=== PATIENT | male | born 1945 | race Caucasian/White ===

== ENCOUNTER → 2016-10-18 | Outpatient (CLI) | payer OTHER ==
--- NOTE | 2016-10-20 11:18 | RADRPT ---
EXAM DATE/TIME: 10/18/2016 16:31 [facility] COMPARISON : No previous studies available for comparison. INDICATIONS : Evaluate for possible cryoablation. OBJECTIVE: Temperature: Heart Rate: Blood Pressure: / Respiratory: Oximetry: PNEUMONIA VACCINE: HISTORY OF PRESENT ILLNESS: ? IMAGING STUDIES: ? ASSESSMENT: ? PLAN: ? TIME SPENT: Homer Gil MD on October 20, 2016 at 11:07 Board Certified Radiologist. This report was verified electronically.
== END ==
LOC: HRAD 12:03
DX: K76.89 Other specified diseases of liver (principal)

== ENCOUNTER 2017-01-14 14:08 | Inpatient (IN) | payer OTHER, MEDICARE ==
[~2017-01-14] VITALS: Ht 160 cm; Wt 71.3 kg
[2017-01-14 14:11] VITALS: BP 102/51; PULSE 99; RESP 18; TEMP 98.2; O2SAT 97
[2017-01-14 14:28] VITALS: BP 105/64; PULSE 88; RESP 14; TEMP 100.9; O2SAT 100
[2017-01-14 14:39] VITALS: O2SAT 96
[2017-01-14] MEDS ORDERED: SODIUM CHLORIDE 0.9% FLUSH 5 ML FLUSH IV FLUSH PRN (14:45)
[2017-01-14] MEDS ORDERED: SODIUM CHLOR 0.9% 1000 ML INJ 1,000 ML IV ONE (15:00)
[2017-01-14] MEDS ORDERED: ACETAMINOPHEN 325 MG TAB PO ONE (15:00)
[2017-01-14] MEDS ORDERED: CEFEPIME INJ 2,000 MG in SODIUM CHLORIDE 0.9% INJ 100 ML IV ONE (15:00)
--- NOTE | 2017-01-14 15:00 | PD ---
HPI Chief Complaint: Abnormal Results Time Seen by Provider: 14:21 Travel History International Travel<30 days: No Contact w/Intl Traveler<30days: No Traveled to known affect area: No History of Present Illness HPI 71 YO M with PMH of HTN, stage IV colorectal cancer presents to the ED for evaluation of 3 day history of fever. The patient was seen in his oncologist, Dr. Lebron's, office this morning. Outpatient lab work revealed the patient to be neutropenic. Dr. Lebron sent the patient for admission. On presentation the patient endorses fever and feeling more tired than usual over the last 3 days. He denies any other physical complaints. PFSH Past Medical History Chemotherapy: Yes (01/05/17) Hypertension: Yes Implanted Vascular Access Dvce: Yes (R CHEST WALL ) Medical other: Yes (CHEMO ) Past Surgical History Abdominal Surgery: Yes (COLON CA ) Social History Alcohol Use: Yes (OCCASSIONAL) Tobacco Use: Yes Substance Use: No Allergies-Medications (Allergen,Severity, Reaction): Uncoded Allergies: 5FU (Allergy, Severe, Rash, 01/14/17) Reported Meds & Prescriptions Reported Meds & Active Scripts Active Active Prescriptions or Reported Medications Unobtainable Review of Systems Except as stated in HPI: all other systems reviewed are Neg Physical Exam Narrative GENERAL: Well-nourished, well-developed pleasant, obese white male in no acute distress.. SKIN: Focused skin assessment warm/dry. HEAD: Normocephalic. EYES: No scleral icterus. No injection or drainage. NECK: Supple, trachea midline. No JVD or lymphadenopathy. CARDIOVASCULAR: Regular rate and rhythm without murmurs, gallops, or rubs. RESPIRATORY: Breath sounds clear and equal bilaterally. No accessory muscle use. GASTROINTESTINAL: Abdomen soft, non-tender, nondistended. Active bowel sounds. MUSCULOSKELETAL: No cyanosis, or edema. Patient is ambulatory with a normal gait. BACK: Nontender without obvious deformity. No CVA tenderness. Data Data Last Documented VS Vital Signs Date Time Temp Pulse Resp B/P (MAP) Pulse Ox O2 Delivery O2 Flow Rate FiO2 01/14/17 14:39 (78) 96 Room Air 01/14/17 14:28 100.9 88 14 Orders Orders Electrocardiogram (01/14/17 14:32) Complete Blood Count With Diff (01/14/17 14:32) Comprehensive Metabolic Panel (01/14/17 14:32) Prothrombin Time / Inr (Pt) (01/14/17 14:32) Act Partial Throm Time (Ptt) (01/14/17 14:32) Urinalysis - C+S If Indicated (01/14/17 14:32) Chest, Single Ap (01/14/17 14:32) Blood Glucose (01/14/17 14:32) Ecg Monitoring (01/14/17 14:32) Iv Access Insert/Monitor (01/14/17 14:32) Oximetry (01/14/17 14:32) Sodium Chloride 0.9% Flush (Ns Flush) (01/14/17 14:45) Cefepime Inj (Maxipime Inj) (01/14/17 15:00) Sodium Chlor 0.9% 1000 Ml Inj (Ns 1000 M (01/14/17 15:00) Acetaminophen (Tylenol) (01/14/17 15:00) Consult Medical Oncology (01/14/17 ) Admit Order (Ed Use Only) (01/14/17 15:39) Admit To Inpatient (01/14/17 ) Vital Signs (Adult) Q4H (01/14/17 15:39) Activity Oob With Assistance (01/14/17 15:39) Showroom Sales Consultant / Telemetry .CONTINUOUS (01/14/17 15:39) Diet Regular Basic (01/14/17 Dinner) Sodium Chlor 0.9% 1000 Ml Inj (Ns 1000 M (01/14/17 15:39) Sodium Chloride 0.9% Flush (Ns Flush) (01/14/17 15:45) Sodium Chloride 0.9% Flush (Ns Flush) (01/14/17 21:00) Ondansetron Inj (Zofran Inj) (01/14/17 15:45) Comprehensive Metabolic Panel (01/15/17 06:00) Complete Blood Count With Diff (01/15/17 06:00) Scd Bilateral/Knee High NOEMÍ.BID (01/14/17 15:39) Acetamin-Hydrocod 325-5 Mg ([place] 5-325 (01/14/17 15:45) Acetamin-Hydrocod 325-10 Mg ([place] 10-32 (01/14/17 15:45) Naloxone Inj (Narcan Inj) (01/14/17 15:45) Inpatient Certification (01/14/17 ) Labs Laboratory Tests Test 01/14/17 14:35 White Blood Count 0.6 TH/MM3 Red Blood Count 3.51 MIL/MM3 Hemoglobin 11.1 GM/DL Hematocrit 32.5 % Mean Corpuscular Volume 92.5 FL Mean Corpuscular Hemoglobin 31.6 PG Mean Corpuscular Hemoglobin Concent 34.1 % Red Cell Distribution Width 13.2 % Platelet Count 95 TH/MM3 Mean Platelet Volume 10.1 FL Neutrophils (%) (Auto) 61.0 % Lymphocytes (%) (Auto) 16.8 % Monocytes (%) (Auto) 16.8 % Eosinophils (%) (Auto) 5.0 % Basophils (%) (Auto) 0.4 % Neutrophils # (Auto) 0.4 TH/MM3 Lymphocytes # (Auto) 0.1 TH/MM3 Monocytes # (Auto) 0.1 TH/MM3 Eosinophils # (Auto) 0.0 TH/MM3 Basophils # (Auto) 0.0 TH/MM3 CBC Comment AUTO DIFF Prothrombin Time 12.0 SEC Prothromb Time International Ratio 1.1 RATIO Activated Partial Thromboplast Time 29.6 SEC Blood Urea Nitrogen 20 MG/DL Creatinine 1.39 MG/DL Random Glucose 117 MG/DL Total Protein 6.7 GM/DL Albumin 3.0 GM/DL Calcium Level 8.1 MG/DL Alkaline Phosphatase 97 U/L Aspartate Amino Transf (AST/SGOT) 22 U/L Alanine Aminotransferase (ALT/SGPT) 51 U/L Total Bilirubin 1.7 MG/DL Sodium Level 130 MEQ/L Potassium Level 3.7 MEQ/L Chloride Level 99 MEQ/L Carbon Dioxide Level 25.6 MEQ/L Anion Gap 5 MEQ/L Estimat Glomerular Filtration Rate 51 ML/MIN [facility] Medical Decision Making Medical Screen Exam Complete: Yes Emergency Medical Condition: Yes Interpretation(s) EKG rate 86, sinus rhythm. Normal intervals. Normal axis. No acute ST changes. Reviewed by Dr. Willoughby Differential Diagnosis Neutropenic fever versus UTI versus pneumonia versus other Narrative Course 71 YO M with PMH of HTN, stage IV colorectal cancer presents to the ED for evaluation of 3 day history of fever. The patient was seen in his oncologist, Dr. Drew Lebron's, office this morning. Outpatient lab work revealed the patient to be neutropenic. Dr. Lebron sent the patient for admission. On presentation the patient endorses fever and feeling more tired than usual over the last 3 days. He denies any other physical complaints. Patient's temp is 100.9 on presentation. Physical exam reveals a pleasant, obese white male in no acute distress. Lung sounds clear bilaterally. No suprapubic tenderness. No lower extremity edema. I spoke with Dr. Lebron who states that the patient is indeed neutropenic. He states that he collected blood cultures and urine sample in the office today. He requested the patient have a chest x-ray, be initiated on cefepime and admitted to the medicine service. He plans to treat with Neupogen. The patient was administered 1 L normal saline, 2 g of cefepime, 500 mg Tylenol. WBC 0.6, Neutrophils 0.4. Hemoglobin 11.1 CXR: No acute disease. I spoke with Dr. Black who agrees to accept the patient to the medicine service. Please see medicine and oncology notes for disposition. Scripts Unable to Obtain Active Prescriptions or Reported Meds Kezia Norris Jan 14, 2017 15:00
[2017-01-14 15:08] LABS: APTT (PATIENT) 29.6 SEC (24.3-30.1); INTERNATIONAL NORMALIZED RATIO 1.1 RATIO
[2017-01-14 15:12] LABS: BASOPHIL % 0.4 % (0.0-2.0); HEMATOCRIT 32.5 % (39.0-51.0); LYMPH % 16.8 % (9.0-44.0); LYMPHOCYTE # 0.1 TH/MM3 (1.0-4.8); MEAN CELL VOLUME 92.5 FL (80.0-100.0); MEAN CORPUSCULAR HEMOGLOBIN 31.6 PG (27.0-34.0); MEAN CORPUSCULAR HGB CONC 34.1 % (32.0-36.0); MONO % 16.8 % (0.0-8.0); PLATELET COUNT 95 TH/MM3 (150-450); RED BLOOD COUNT 3.51 MIL/MM3 (4.50-5.90); RED CELL DISTRIBUTION WIDTH 13.2 % (11.6-17.2); WHITE BLOOD COUNT 0.6 TH/MM3 (4.0-11.0)
[2017-01-14 15:17] LABS: ALT (GPT) 51 U/L (12-78); ANION GAP 5 MEQ/L (5-15); AST (GOT) 22 U/L (15-37); BICARBONATE 25.6 MEQ/L (21.0-32.0); BLOOD UREA NITROGEN 20 MG/DL (7-18); CHLORIDE 99 MEQ/L (98-107); GLOMERULAR FILTRATION RATE 51 ML/MIN (>89); POTASSIUM 3.7 MEQ/L (3.5-5.1); SODIUM (NA) 130 MEQ/L (136-145)
[2017-01-14 15:19] LABS: ALKALINE PHOSPHATASE 97 U/L (45-117); TOTAL BILIRUBIN ADULT 1.7 MG/DL (0.2-1.0)
[2017-01-14 15:21] LABS: HEMO FLAGS AUTO DIFF
[2017-01-14 15:23] LABS: AUTOMATED NEUTROPHIL # 0.4 TH/MM3 (1.8-7.7)
--- NOTE | 2017-01-14 15:30 | RADRPT ---
EXAM DATE/TIME: 01/14/2017 14:42 [facility] COMPARISON: No previous studies available for comparison. INDICATIONS : Fever. MEDICAL HISTORY : Carcinoma, colon. SURGICAL HISTORY : Port and chemo. ENCOUNTER: Initial ACUITY: 1 day PAIN SCORE: 0/10 LOCATION: Bilateral chest FINDINGS: A single view of the chest demonstrates the lungs to be symmetrically aerated without evidence of mas s, infiltrate or effusion. [id number] in good position. The cardiomediastinal contours are unrem arkable. Osseous structures are intact. CONCLUSION: No acute disease. Oscar Crews MD FACR on January 14, 2017 at 15:29 Board Certified Radiologist. This report was verified electronically.
[2017-01-14] MEDS ORDERED: ACETAMINOPHEN/HYDROcodone 325 MG/5 MG TAB PO PRN (15:45)
[2017-01-14] MEDS ORDERED: ACETAMINOPHEN/HYDROcodone 325 MG/10 MG TAB PO PRN (15:45)
[2017-01-14] MEDS ORDERED: SODIUM CHLORIDE 0.9% FLUSH 10 ML FLUSH IV FLUSH PRN (15:45)
[2017-01-14] MEDS ORDERED: NALOXONE HCL 0.4 MG/ML AMP IV PUSH PRN (15:45)
[2017-01-14] MEDS: SODIUM CHLOR 0.9% 1000 ML INJ 1,000 ML IV SCH (16:44)
--- NOTE | 2017-01-14 16:55 | HHI.HP ---
[facility] Kaleb Lyons MD Admission Diagnosis neutropenic fever Diagnoses: Travel History International Travel<30 Days: No Contact w/Intl Traveler <30 Da: No Traveled to Known Affected Are: No Sepsis Criteria SIRS Criteria (2 or more): Temp > 100.9 or < 96.8, Heart rate over 90, WBC > 38241, < 4000 or > 10% bands Sepsis Criteria (SIRS+source): Infect source susp/known History of Present Illness Mr. Jo is a 8-year-old male. He has a past history of colon cancer and has had colon resection for this. Presently she is undergoing maintenance chemotherapy. He says after he started this recent maintenance therapy he had an onset of neutropenia. Now he presents to the emergency department with 3 days of fever, diarrhea, and malaise. She cannot recall any previous history of neutropenic fever with previous episodes of chemotherapy. She cannot recall any previous infections. He does not report any symptoms of infection including cough, dysuria, or skin infection. She has had diarrhea which might represent infection. He says after he's received antibiotics in the ER he starting to feel better. No other complaints. Review of Systems Constitutional: COMPLAINS OF: Diaphoretic episodes, Fatigue, Fever, Chills, DENIES: Change in appetite Endocrine: COMPLAINS OF: Heat/cold intolerance, DENIES: Polydipsia, Polyuria, Polyphagia Eyes: DENIES: Blurred vision, Diplopia, Eye pain, Vision loss Respiratory: DENIES: Apneas, Cough, Wheezing, Sputum production, Shortness of breath Cardiovascular: DENIES: Chest pain, Palpitations, Syncope Gastrointestinal: DENIES: Abdominal pain, Black stools, Bloody stools Musculoskeletal: DENIES: Joint pain, Muscle aches, Stiffness Integumentary: DENIES: Abnormal pigmentation, Pruritus, Rash Hematologic/lymphatic: DENIES: Bruising, Lymphadenopathy Immunologic/allergic: DENIES: Eczema, Urticaria Neurologic: DENIES: Abnormal gait, Headache, Paresthesias Psychiatric: DENIES: Anxiety, Confusion, Hallucinations Past Family Social History Past Medical History Colon cancer Hypertension Left anterior abdominal wall hernia Past Surgical History Appendectomy Partial colectomy (for colon cancer) Reported Medications Reported Meds & Active Scripts Active Active Prescriptions or Reported Medications Unobtainable Allergies: Uncoded Allergies: 5FU (Allergy, Severe, Rash, 01/14/17) Active Ordered Medications Administered Medications Medications (Trade) Dose Ordered Sig/Linda Route PRN Reason Start Time Stop Time Status Last Admin Dose Admin Sodium Chloride 1,000 ml @ 100 mls/hr Q10H IV 01/14/17 15:39 01/14/17 16:44 Family History Breast cancer in mother Liver cancer and sister Father's past medical history is not known Social History Past history of occasional alcohol use Past history of occasional smoking, patient has quit No illicit drug use Physical Exam Vital Signs Vital Signs Date Time Temp Pulse Resp B/P (MAP) Pulse Ox O2 Delivery O2 Flow Rate FiO2 01/14/17 14:39 (78) 96 Room Air 01/14/17 14:28 100.9 88 14 105/64 (78) 100 Room Air 01/14/17 14:11 98.2 99 18 102/51 (68) 97 Room Air Physical Exam GENERAL: NAD, A&Ox3 HEAD: Normocephalic. NECK: Supple, trachea midline. No lymphadenopathy. EYES: No scleral icterus. No injection or drainage. CARDIOVASCULAR: Regular rate and rhythm without murmurs, gallops, or rubs. RESPIRATORY: Breath sounds equal bilaterally. No accessory muscle use. GASTROINTESTINAL: Abdomen soft, non-tender, nondistended. MUSCULOSKELETAL: No cyanosis, or edema. SKIN: Warm and dry. NEURO: No focal neurological deficitis. Laboratory Laboratory Tests Test 01/14/17 14:35 White Blood Count 0.6 Red Blood Count 3.51 Hemoglobin 11.1 Hematocrit 32.5 Mean Corpuscular Volume 92.5 Mean Corpuscular Hemoglobin 31.6 Mean Corpuscular Hemoglobin Concent 34.1 Red Cell Distribution Width 13.2 Platelet Count 95 Mean Platelet Volume 10.1 Neutrophils (%) (Auto) 61.0 Lymphocytes (%) (Auto) 16.8 Monocytes (%) (Auto) 16.8 Eosinophils (%) (Auto) 5.0 Basophils (%) (Auto) 0.4 Neutrophils # (Auto) 0.4 Lymphocytes # (Auto) 0.1 Monocytes # (Auto) 0.1 Eosinophils # (Auto) 0.0 Basophils # (Auto) 0.0 CBC Comment AUTO DIFF Prothrombin Time 12.0 Prothromb Time International Ratio 1.1 Activated Partial Thromboplast Time 29.6 Blood Urea Nitrogen 20 Creatinine 1.39 Random Glucose 117 Total Protein 6.7 Albumin 3.0 Calcium Level 8.1 Alkaline Phosphatase 97 Aspartate Amino Transf (AST/SGOT) 22 Alanine Aminotransferase (ALT/SGPT) 51 Total Bilirubin 1.7 Sodium Level 130 Potassium Level 3.7 Chloride Level 99 Carbon Dioxide Level 25.6 Anion Gap 5 Estimat Glomerular Filtration Rate 51 Result Diagram: 01/14/17 14301/14/171434 Septic Shock Reassessment Heart: Regular rate and rhythm Lungs: Clear Skin: Warm Peripheral Pulses: Bounding Right Radial Bounding Left Radial Bounding Right Posterior Tibial Bounding Left Posterior Tibial Capillary Refill: Brisk Caprini VTE Risk Assessment Caprini VTE Risk Assessment: No/Low Risk (score <= 1) Caprini Risk Assessment Model Point Value = 1 Point Value = 2 Point Value = 3 Point Value = 5 Age 41-60 Minor surgery BMI > 25 kg/m2 Swollen legs Varicose veins or History of unexplained or recurrent spontaneous Oral contraceptives or hormone replacement Sepsis (< 1 month) Serious lung disease, including pneumonia (< 1 month) Abnormal pulmonary function Acute myocardial infarction Congestive heart failure (< 1 month) History of inflammatory bowel disease Medical patient at bed rest Age 61-74 Arthroscopic surgery Major open surgery (> 45 min) Laparoscopic surgery (> 45 min) Malignancy Confined to bed (> 72 hours) Immobilizing plaster cast Central venous access Age >= 75 History of VTE Family history of VTE Factor V Leiden Prothrombin [id number] Lupus anticoagulant Anticardiolipin antibodies Elevated serum homocysteine Heparin-induced thrombocytopenia Other congenital or acquired thrombophilia Stroke (< 1 month) Elective arthroplasty Hip, pelvis, or leg fracture Acute spinal cord injury (< 1 month) Prophylaxis Regimen Total Risk Factor Score Risk Level Prophylaxis Regimen 0-1 Low Early ambulation 2 Moderate Order ONE of the following: *Sequential Compression Device (SCD) *Heparin 5000 units SQ BID 3-4 Higher Order ONE of the following medications: *Heparin 5000 units SQ TID *Enoxaparin/Lovenox 40 mg SQ daily (WT < 150 kg, CrCl > 30 mL/min) *Enoxaparin/Lovenox 30 mg SQ daily (WT < 150 kg, CrCl > 10-29 mL/min) *Enoxaparin/Lovenox 30 mg SQ BID (WT < 150 kg, CrCl > 30 mL/min) AND/OR *Sequential Compression Device (SCD) 5 or more Highest Order ONE of the following medications: *Heparin 5000 units SQ TID (Preferred with Epidurals) *Enoxaparin/Lovenox 40 mg SQ daily (WT < 150 kg, CrCl > 30 mL/min) *Enoxaparin/Lovenox 30 mg SQ daily (WT < 150 kg, CrCl > 10-29 mL/min) *Enoxaparin/Lovenox 30 mg SQ BID (WT < 150 kg, CrCl > 30 mL/min) AND *Sequential Compression Device (SCD) Assessment and Plan Problem List: (1) Neutropenic fever ICD Code: D70.9 - Neutropenia, unspecified; R50.81 - Fever presenting with conditions classified elsewhere (2) Sepsis ICD Code: A41.9 - Sepsis, unspecified organism (3) Hypertension ICD Code: I10 - Essential (primary) hypertension Assessment and Plan Assessment and plan 71-year-old male admitted secondary to neutropenic fever with sepsis and diarrhea. Sepsis IV hydration Follow vital signs Treatment infection Neutropenic fever Diarrhea Cover with cefepime Urinalysis pending C. difficile screen pending Add by mouth Flagyl if C. difficile screen is positive Oncology consultation Colon cancer Oncology consult Hold chemotherapy for now Hypertension Blood pressures are presently borderline low, likely secondary to infection Hold lisinopril for now DVT prophylaxis Lovenox Physician Certification 2 Midnight Certification Type: Admission for Inpatient Services Order for Inpatient Services The services are ordered in accordance with Medicare regulations or non- Medicare payer requirements, as applicable. In the case of services not specified as inpatient-only, they are appropriately provided as inpatient services in accordance with the 2-midnight benchmark. Estimated LOS (days): 4 days is the estimated time the patient will need to remain in the hospital, assuming treatment plan goals are met and no additional complications. Post-Hospital Plan: Home Hugo Black MD Jan 14, 2017 16:55
[2017-01-14 17:00] VITALS: BP 98/53; PULSE 76; RESP 18; TEMP 99.8; O2SAT 97
[2017-01-14 17:04] LABS: BANDS 20 % (0-6); EOSINOPHILS 1 % (0-4); NEUTROPHIL # MANUAL DIFF 0.4 TH/MM3 (1.8-7.7); POLYS (SEG NEUTROPHILS) 47 % (16-70); WBC DIFF SAMPLE 100
[2017-01-14 17:05] LABS: PLATELET ESTIMATE SMEAR LOW (NORMAL); PLATELET MORPHOLOGY NORMAL (NORMAL); TEARDROP RBCS 1+ (NORMAL)
[2017-01-14 20:00] VITALS: BP 98/54; PULSE 102; PULSE 75; RESP 18; TEMP 97.6; O2SAT 96
[2017-01-14 20:22] LABS: SCAN/DIFF FINAL DIFF MANUAL
--- NOTE | 2017-01-14 20:56 | EKG ---
Date Performed: 01/14/2017 Time Performed: 14:57:16 PTAGE: 71 years EKG: Sinus rhythm NONSPECIFIC T-WAVE ABNORMALITY BORDERLINE ECG NO PREVIOUS TRACING DOCTOR: Carlos Escoto Interpretating Date/Time 01/14/2017 20:55:17
[2017-01-14] MEDS: SODIUM CHLORIDE 0.9% FLUSH 10 ML FLUSH IV FLUSH SCH (21:00)
[2017-01-14] MEDS ORDERED: ZOLPIDEM TARTRATE 5 MG TAB PO ONE (21:30)
[2017-01-14] MEDS: FILGRASTIM 480 MCG/1.6 ML VIAL SQ SCH (22:09)
[2017-01-14] MEDS: LACTOBACILLUS ACIDOPHILUS TAB PO SCH (22:10)
[2017-01-14] MEDS: ONDANSETRON HCL 4 MG/2 ML VIAL IVP PRN (22:10)
[2017-01-15] VITALS (8 sets, daily range): BP systolic 107–139; BP diastolic 56–69; PULSE 65–96; RESP 18–20; TEMP 98.4–99.7; O2SAT 94–100
[2017-01-15 02:29] LABS: C. DIFF EPI 027 PRESUMPTIVE NEGATIVE (NEGATIVE)
[2017-01-15] MEDS: SODIUM CHLOR 0.9% 1000 ML INJ 1,000 ML IV SCH ×3 (03:50→20:35)
[2017-01-15 07:30] LABS: HEMATOCRIT 25.8 % (39.0-51.0); MEAN CELL VOLUME 93.1 FL (80.0-100.0); MEAN CORPUSCULAR HGB CONC 34.4 % (32.0-36.0); PLATELET COUNT 65 TH/MM3 (150-450); RED BLOOD COUNT 2.78 MIL/MM3 (4.50-5.90); RED CELL DISTRIBUTION WIDTH 13.5 % (11.6-17.2); WHITE BLOOD COUNT 0.4 TH/MM3 (4.0-11.0)
[2017-01-15 07:44] LABS: HEMO FLAGS AUTO DIFF
[2017-01-15 08:17] LABS: ALKALINE PHOSPHATASE 79 U/L (45-117); ALT (GPT) 35 U/L (12-78); ANION GAP 8 MEQ/L (5-15); AST (GOT) 9 U/L (15-37); BICARBONATE 22.6 MEQ/L (21.0-32.0); BLOOD UREA NITROGEN 12 MG/DL (7-18); CHLORIDE 106 MEQ/L (98-107); GLOMERULAR FILTRATION RATE 111 ML/MIN (>89); POTASSIUM 3.6 MEQ/L (3.5-5.1); SODIUM (NA) 137 MEQ/L (136-145); TOTAL BILIRUBIN ADULT 0.7 MG/DL (0.2-1.0)
[2017-01-15 08:53] LABS: BANDS 5 % (0-6); BASOPHILS 5 % (0-2); EOSINOPHILS 10 % (0-4); METAMYELOCYTES 5 % (0-1); NEUTROPHIL # MANUAL DIFF 0.1 TH/MM3 (1.8-7.7); OVALOCYTES 1+ (NORMAL); PLATELET ESTIMATE SMEAR LOW (NORMAL); PLATELET MORPHOLOGY NORMAL (NORMAL); POLYS (SEG NEUTROPHILS) 25 % (16-70); SCAN/DIFF FINAL DIFF MANUAL; TOXIC GRANULATION 1+ (NORMAL); WBC DIFF SAMPLE 20
[2017-01-15] MEDS: LACTOBACILLUS ACIDOPHILUS TAB PO SCH ×2 (08:53→13:40)
[2017-01-15] MEDS: SODIUM CHLORIDE 0.9% FLUSH 10 ML FLUSH IV FLUSH SCH ×2 (08:53→20:34)
[2017-01-15] MEDS: ONDANSETRON HCL 4 MG/2 ML VIAL IVP PRN (11:01)
[2017-01-15] MEDS: FILGRASTIM 480 MCG/1.6 ML VIAL SQ SCH (13:38)
--- NOTE | 2017-01-15 13:55 | PD.ONC.PN ---
Subjective Subjective Remarks Tmax 100.9 yesterday afternoon. Patient resting in bed. states he feels better than yesterday. +multiple loose stools--requesting something for diarrhea. denies abdominal pain. Objective Data Date Time Temp Pulse Resp B/P (MAP) Pulse Ox O2 Delivery O2 Flow Rate FiO2 01/15/17 12:30 99.0 80 20 118/61 (80) 98 01/15/17 08:00 65 01/15/17 08:00 98.4 75 19 107/56 (73) 100 01/15/17 05:40 99.0 80 18 115/60 (78) 98 01/15/17 04:00 96 01/15/17 00:00 82 01/15/17 00:00 99.3 81 18 109/56 (73) 96 01/14/17 20:00 102 01/14/17 20:00 97.6 75 18 98/54 (69) 96 01/14/17 17:00 99.8 76 18 98/53 (68) 97 01/14/17 14:39 (78) 96 Room Air 01/14/17 14:28 100.9 88 14 105/64 (78) 100 Room Air 01/14/17 14:11 98.2 99 18 102/51 (68) 97 Room Air 01/15/17 01/15/17 01/15/17 07:00 15:00 23:00 Intake Total 1100 ml Output Total 0 ml Balance 1100 ml Result Diagram: 01/15/17 0640 01/15/17 0640 Laboratory Results Laboratory Tests Test 01/14/17 14:35 01/14/17 21:52 01/15/17 06:40 White Blood Count 0.6 TH/MM3 0.4 TH/MM3 Red Blood Count 3.51 MIL/MM3 2.78 MIL/MM3 Hemoglobin 11.1 GM/DL 8.9 GM/DL Hematocrit 32.5 % 25.8 % Mean Corpuscular Volume 92.5 FL 93.1 FL Mean Corpuscular Hemoglobin 31.6 PG 32.0 PG Mean Corpuscular Hemoglobin Concent 34.1 % 34.4 % Red Cell Distribution Width 13.2 % 13.5 % Platelet Count 95 TH/MM3 65 TH/MM3 Mean Platelet Volume 10.1 FL 9.5 FL Neutrophils (%) (Auto) 61.0 % Lymphocytes (%) (Auto) 16.8 % Monocytes (%) (Auto) 16.8 % Eosinophils (%) (Auto) 5.0 % Basophils (%) (Auto) 0.4 % Neutrophils # (Auto) 0.4 TH/MM3 Lymphocytes # (Auto) 0.1 TH/MM3 Monocytes # (Auto) 0.1 TH/MM3 Eosinophils # (Auto) 0.0 TH/MM3 Basophils # (Auto) 0.0 TH/MM3 CBC Comment AUTO DIFF AUTO DIFF Differential Total Cells Counted 100 20 Neutrophils % (Manual) 47 % 25 % Band Neutrophils % 20 % 5 % Lymphocytes % 13 % 30 % Monocytes % 19 % 20 % Eosinophils % 1 % 10 % Neutrophils # (Manual) 0.4 TH/MM3 0.1 TH/MM3 Differential Comment FINAL DIFF MANUAL FINAL DIFF MANUAL Platelet Estimate LOW LOW Platelet Morphology Comment NORMAL NORMAL Tear Drop Cells 1+ Prothrombin Time 12.0 SEC Prothromb Time International Ratio 1.1 RATIO Activated Partial Thromboplast Time 29.6 SEC Blood Urea Nitrogen 20 MG/DL 12 MG/DL Creatinine 1.39 MG/DL 0.70 MG/DL Random Glucose 117 MG/DL 83 MG/DL Total Protein 6.7 GM/DL 4.9 GM/DL Albumin 3.0 GM/DL 2.4 GM/DL Calcium Level 8.1 MG/DL 8.0 MG/DL Alkaline Phosphatase 97 U/L 79 U/L Aspartate Amino Transf (AST/SGOT) 22 U/L 9 U/L Alanine Aminotransferase (ALT/SGPT) 51 U/L 35 U/L Total Bilirubin 1.7 MG/DL 0.7 MG/DL Sodium Level 130 MEQ/L 137 MEQ/L Potassium Level 3.7 MEQ/L 3.6 MEQ/L Chloride Level 99 MEQ/L 106 MEQ/L Carbon Dioxide Level 25.6 MEQ/L 22.6 MEQ/L Anion Gap 5 MEQ/L 8 MEQ/L Estimat Glomerular Filtration Rate 51 ML/MIN 111 ML/MIN Stool C. difficile Toxin (PCR) NEGATIVE Stl C. difficile Toxin Epiderm 027 PRESUMPTIVE NEGATIVE Basophils % 5 % Metamyelocytes 5 % Toxic Granulation 1+ Ovalocytes 1+ Imaging Studies Last 24 hours Impressions Chest X-Ray 01/14/17 1432 Signed Impressions: Service Date/Time: Saturday, January 14, 2017 14:42 - CONCLUSION: No acute disease. Oscar Crews MD FACR Administered Medications Medications (Trade) Dose Ordered Sig/Linda Route PRN Reason Start Time Stop Time Status Last Admin Dose Admin Sodium Chloride 1,000 ml @ 100 mls/hr Q10H IV 01/14/17 15:39 01/15/17 12:48 Ondansetron HCl (Zofran Inj) 4 mg Q6H PRN IVP NAUSEA OR VOMITING 01/14/17 15:45 01/15/17 11:01 Lactobacillus Acidophilus (Lactinex) 1 tab TID PO 01/14/17 18:00 01/15/17 13:40 Filgrastim (Neupogen Inj) 480 mcg DAILY@14 SQ 01/14/17 17:00 01/15/17 13:38 Objective Remarks GENERAL: chronically ill appearing male supine in bed in nad. SKIN: Warm and dry. HEAD: Normocephalic. EYES: No scleral icterus. No injection or drainage. NECK: Supple, trachea midline. CARDIOVASCULAR: Regular rate and rhythm RESPIRATORY: Breath sounds equal bilaterally. No accessory muscle use. GASTROINTESTINAL: Abdomen soft, no tenderness. + BS. +old scar EXTREMITIES: No cyanosis NEUROLOGICAL: No obvious focal deficit. Awake, alert, and oriented x3. 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 Assessment 71y/o male with stage IV colorectal cancer, admitted with neutropenic fever. Plan 1. continue antibiotics 2. start Lomotil for diarrhea 3. monitor blood counts Attending Statement The exam, history, and the medical decision-making described in the above note were completed with the assistance of the mid-level provider. I reviewed and agree with the findings presented. I attest that I had a [id number] encounter with the patient on the same day, and personally performed and documented my assessment and findings in the medical record. Feeling better. Diarrhea improved but still has loose stool. Afebrile but still neutropenic. Continue neupogen and monitor CBC. Continue abx. Francesca Bowman Jan 15, 2017 13:55 Elias Donis MD Jan 15, 2017 14:36
[2017-01-15] MEDS ORDERED: CEFEPIME IV SCH (14:00)
[2017-01-15] MEDS ORDERED: SODIUM CHLOR 0.9% IV SCH (14:00)
[2017-01-15 14:15] LABS: BLOOD, URINE NEG (NEG); GLUCOSE,URINE NEG (NEG); KETONE, URINE NEG (NEG); NITRITE,URINE NEG (NEG); PH, URINE 5.5 (5.0-8.5); URINE COLOR YELLOW (YELLW/STRAW)
[2017-01-15 14:16] LABS: COMMENT (UR) CULT NOT INDICATED; CULTURE IF INDICATED CULT NOT INDICATED
--- NOTE | 2017-01-15 15:27 | HHI.PR ---
Subjective Remarks Patient is feeling better. No further fevers. White blood cell count declined to 0.4. This may be normal variation. Hemoglobin is 8.9 today. Objective Vital Signs Date Time Temp Pulse Resp B/P (MAP) Pulse Ox O2 Delivery O2 Flow Rate FiO2 01/15/17 12:30 99.0 80 20 118/61 (80) 98 01/15/17 08:00 65 01/15/17 08:00 98.4 75 19 107/56 (73) 100 01/15/17 05:40 99.0 80 18 115/60 (78) 98 01/15/17 04:00 96 01/15/17 00:00 82 01/15/17 00:00 99.3 81 18 109/56 (73) 96 01/14/17 20:00 102 01/14/17 20:00 97.6 75 18 98/54 (69) 96 01/14/17 17:00 99.8 76 18 98/53 (68) 97 I/O 01/14/17 01/14/17 01/14/17 01/15/17 01/15/17 01/15/17 07:00 15:00 23:00 07:00 15:00 23:00 Intake Total 2060 ml 1100 ml Output Total 0 ml Balance 2060 ml 1100 ml Intake Oral 960 ml 1100 ml IV Total 1100 ml Output Urine Total 0 ml # Voids 3 # Bowel Movements 2 0 Result Diagram: 01/15/17 0640 01/15/17 0640 Objective Remarks GENERAL: NAD, A&Ox3 HEAD: Normocephalic. NECK: Supple, trachea midline. No lymphadenopathy. EYES: No scleral icterus. No injection or drainage. CARDIOVASCULAR: Regular rate and rhythm without murmurs, gallops, or rubs. RESPIRATORY: Breath sounds equal bilaterally. No accessory muscle use. GASTROINTESTINAL: Abdomen soft, non-tender, nondistended. MUSCULOSKELETAL: No cyanosis, or edema. SKIN: Warm and dry. NEURO: No focal neurological deficitis. A/P Problem List: (1) Colorectal cancer, stage IV ICD Code: C19 - Malignant neoplasm of rectosigmoid junction (2) Neutropenic fever ICD Code: D70.9 - Neutropenia, unspecified; R50.81 - Fever presenting with conditions classified elsewhere (3) Hypertension ICD Code: I10 - Essential (primary) hypertension (4) Sepsis ICD Code: A41.9 - Sepsis, unspecified organism Assessment and Plan Assessment and plan 71-year-old male admitted secondary to neutropenic fever with sepsis and diarrhea. Sepsis Resolved Neutropenic fever Diarrhea Cover with cefepime Urinalysis pending C. difficile screen is negative Start Imodium on an as-needed basis Oncology following Anemia May be part of pancytopenia, monitor CBC Follow hemoglobin levels Consider transfusion of hemoglobin declines further Colon cancer Oncology following Hold chemotherapy for now Hypertension Blood pressures are presently borderline low, likely secondary to infection Hold lisinopril for now DVT prophylaxis Lovenox Hugo Black MD Jan 15, 2017 15:27
[2017-01-15] MEDS ORDERED: LOPERAMIDE HCL SOLN 2 MG/10 ML UDC PO PRN (15:30)
[2017-01-15] MEDS: DIPHENOXYLATE/ATROPINE 2.5 MG/0.025 MG TAB PO PRN (17:05)
[2017-01-15] MEDS: ACETAMINOPHEN 325 MG TAB PO PRN (20:33)
[2017-01-15] MEDS: ZOLPIDEM TARTRATE 5 MG TAB PO PRN (21:45)
[2017-01-15] MEDS: CEFEPIME INJ 2,000 MG in SODIUM CHLORIDE 0.9% INJ 100 ML IV SCH (22:25)
[2017-01-16] VITALS (11 sets, daily range): BP systolic 113–145; BP diastolic 59–67; PULSE 58–79; RESP 18; TEMP 97–100.1; O2SAT 97–99
[2017-01-16] MEDS: CEFEPIME INJ 2,000 MG in SODIUM CHLORIDE 0.9% INJ 100 ML IV SCH ×3 (06:21→22:54)
[2017-01-16 07:29] LABS: AUTOMATED NEUTROPHIL # 0.6 TH/MM3 (1.8-7.7); BASOPHIL % 0.1 % (0.0-2.0); EOSINOPHIL # 0.1 TH/MM3 (0-0.4); EOSINOPHIL % 6.7 % (0.0-4.0); HEMATOCRIT 27.4 % (39.0-51.0); LYMPH % 19.6 % (9.0-44.0); LYMPHOCYTE # 0.2 TH/MM3 (1.0-4.8); MEAN CELL VOLUME 93.3 FL (80.0-100.0); MEAN CORPUSCULAR HEMOGLOBIN 31.4 PG (27.0-34.0); MEAN CORPUSCULAR HGB CONC 33.7 % (32.0-36.0); MONO % 22.7 % (0.0-8.0); NEUT % 50.9 % (16.0-70.0); PLATELET COUNT 72 TH/MM3 (150-450); RED BLOOD COUNT 2.94 MIL/MM3 (4.50-5.90); RED CELL DISTRIBUTION WIDTH 13.3 % (11.6-17.2); WHITE BLOOD COUNT 1.1 TH/MM3 (4.0-11.0)
[2017-01-16 07:40] LABS: HEMO FLAGS AUTO DIFF
[2017-01-16 07:47] LABS: ANION GAP 6 MEQ/L (5-15); AST (GOT) 9 U/L (15-37); BICARBONATE 25.9 MEQ/L (21.0-32.0); BLOOD UREA NITROGEN 4 MG/DL (7-18); CHLORIDE 108 MEQ/L (98-107); GLOMERULAR FILTRATION RATE 141 ML/MIN (>89); POTASSIUM 3.4 MEQ/L (3.5-5.1); SODIUM (NA) 140 MEQ/L (136-145)
[2017-01-16 07:48] LABS: ALT (GPT) 31 U/L (12-78)
[2017-01-16 07:50] LABS: ALKALINE PHOSPHATASE 86 U/L (45-117); TOTAL BILIRUBIN ADULT 0.6 MG/DL (0.2-1.0)
[2017-01-16] MEDS ORDERED: POTASSIUM CHLORIDE 20 MEQ PWD PACKET PO ONE (08:30)
[2017-01-16] MEDS ORDERED: PADIMATE (CHAPSTICK) 4.5 GM TUBE TOPICAL PRN (08:45)
[2017-01-16] MEDS: SODIUM CHLOR 0.9% 1000 ML INJ 1,000 ML IV SCH ×2 (09:17→17:41)
[2017-01-16] MEDS: SODIUM CHLORIDE 0.9% FLUSH 10 ML FLUSH IV FLUSH SCH ×2 (09:18→20:40)
--- NOTE | 2017-01-16 10:00 | PD.ONC.PN ---
Subjective Subjective Remarks tmax 1001. overnight. Had some chills overnight. Diarrhea improved after Lomotil yesterday. No nausea or vomiting. Objective Data Date Time Temp Pulse Resp B/P (MAP) Pulse Ox O2 Delivery O2 Flow Rate FiO2 01/16/17 04:24 98.3 69 18 113/59 (77) 97 01/16/17 04:00 71 01/16/17 00:18 100.1 79 18 117/59 (78) 98 01/16/17 00:00 72 01/15/17 20:30 99.4 80 20 115/62 (79) 97 01/15/17 20:00 76 01/15/17 16:42 99.7 85 20 139/69 (92) 94 01/15/17 12:30 99.0 80 20 118/61 (80) 98 01/16/17 01/16/17 01/16/17 07:00 15:00 23:00 Output Total 450 ml Balance -450 ml Result Diagram: 01/16/17 0655 01/16/17 0655 Laboratory Results Laboratory Tests Test 01/15/17 13:45 01/16/17 06:55 Urine Color YELLOW Urine Turbidity CLEAR Urine pH 5.5 Urine Specific [place] 1.008 Urine Protein NEG mg/dL Urine Glucose (UA) NEG mg/dL Urine Ketones NEG mg/dL Urine Occult Blood NEG Urine Nitrite NEG Urine Bilirubin NEG Urine Urobilinogen LESS THAN 2.0 MG/DL Urine Leukocyte Esterase NEG Urine RBC LESS THAN 1 /hpf Urine WBC 3 /hpf Microscopic Urinalysis Comment CULT NOT INDICATED White Blood Count 1.1 TH/MM3 Red Blood Count 2.94 MIL/MM3 Hemoglobin 9.2 GM/DL Hematocrit 27.4 % Mean Corpuscular Volume 93.3 FL Mean Corpuscular Hemoglobin 31.4 PG Mean Corpuscular Hemoglobin Concent 33.7 % Red Cell Distribution Width 13.3 % Platelet Count 72 TH/MM3 Mean Platelet Volume 8.8 FL Neutrophils (%) (Auto) 50.9 % Lymphocytes (%) (Auto) 19.6 % Monocytes (%) (Auto) 22.7 % Eosinophils (%) (Auto) 6.7 % Basophils (%) (Auto) 0.1 % Neutrophils # (Auto) 0.6 TH/MM3 Lymphocytes # (Auto) 0.2 TH/MM3 Monocytes # (Auto) 0.3 TH/MM3 Eosinophils # (Auto) 0.1 TH/MM3 Basophils # (Auto) 0.0 TH/MM3 CBC Comment AUTO DIFF Blood Urea Nitrogen 4 MG/DL Creatinine 0.57 MG/DL Random Glucose 87 MG/DL Total Protein 5.2 GM/DL Albumin 2.4 GM/DL Calcium Level 8.4 MG/DL Alkaline Phosphatase 86 U/L Aspartate Amino Transf (AST/SGOT) 9 U/L Alanine Aminotransferase (ALT/SGPT) 31 U/L Total Bilirubin 0.6 MG/DL Sodium Level 140 MEQ/L Potassium Level 3.4 MEQ/L Chloride Level 108 MEQ/L Carbon Dioxide Level 25.9 MEQ/L Anion Gap 6 MEQ/L Estimat Glomerular Filtration Rate 141 ML/MIN Administered Medications Medications (Trade) Dose Ordered Sig/Linda Route PRN Reason Start Time Stop Time Status Last Admin Dose Admin Sodium Chloride 1,000 ml @ 100 mls/hr Q10H IV 01/14/17 15:39 01/16/17 09:17 Ondansetron HCl (Zofran Inj) 4 mg Q6H PRN IVP NAUSEA OR VOMITING 01/14/17 15:45 01/15/17 11:01 Acetaminophen/ Hydrocodone Bitart ([place] 5-325 Mg) 1 tab Q4H PRN PO PAIN SCALE 3 TO 5 01/14/17 15:45 01/15/17 17:06 Filgrastim (Neupogen Inj) 480 mcg DAILY@14 SQ 01/14/17 17:00 01/15/17 13:38 Cefepime HCl 2000 mg/Sodium Chloride 100 ml @ 200 mls/hr Q8H IV 01/15/17 23:00 01/16/17 06:21 Diphenoxylate HCl/ Atropine (Lomotil Tab) 1 tab Q6H PRN PO diarrhea 01/15/17 14:00 01/15/17 17:05 Acetaminophen (Tylenol) 650 mg Q4H PRN PO fever, HALL 01/15/17 20:15 01/15/17 20:33 Zolpidem Tartrate (Ambien) 5 mg HS PRN PO sleep 01/15/17 21:00 01/15/17 21:45 Objective Remarks GENERAL: chronically ill appearing male upright in bed in nad. SKIN: Warm and dry. HEAD: Normocephalic. EYES: No scleral icterus. No injection or drainage. NECK: Supple, trachea midline. CARDIOVASCULAR: Regular rate and rhythm RESPIRATORY: Breath sounds equal bilaterally. No accessory muscle use. GASTROINTESTINAL: Abdomen soft, non-tender EXTREMITIES: No cyanosis NEUROLOGICAL: awake and alert, normal speech. moving extremities Assessment/Plan Problem List: (1) Colorectal cancer, stage IV ICD Codes: C19 - Malignant neoplasm of rectosigmoid junction Plan: --received irinotecan and cetuximab--last received on 01/05/17 --was receiving irinotecan at 20% dose reduction d/t leukopenia (2) Neutropenic fever ICD Codes: D70.9 - Neutropenia, unspecified; R50.81 - Fever presenting with conditions classified elsewhere Plan: --BC no growth --on Cefepime --U/A no infection --CXR no pneumonia. Assessment 71y/o male with stage IV colorectal cancer, admitted with neutropenic fever. Plan 1. continue antibiotics 2. check repeat blood cultures 3. continue supportive care Attending Statement The exam, history, and the medical decision-making described in the above note were completed with the assistance of the mid-level provider. I reviewed and agree with the findings presented. I attest that I had a [id number] encounter with the patient on the same day, and personally performed and documented my assessment and findings in the medical record. See consult note. Francesca Bowman Jan 16, 2017 10:00 Elias Donis MD Jan 16, 2017 12:13
--- NOTE | 2017-01-16 10:13 | HHI.PR ---
Subjective Remarks Patient continues to feel better today. White blood cell count has trended from 0.4 to 1.1 today. Hemoglobin level trended from 8.9 to 9.2 today. No fevers. Creatinine is within normal limits now at 0.57. Objective Vital Signs Date Time Temp Pulse Resp B/P (MAP) Pulse Ox O2 Delivery O2 Flow Rate FiO2 01/16/17 04:24 98.3 69 18 113/59 (77) 97 01/16/17 04:00 71 01/16/17 00:18 100.1 79 18 117/59 (78) 98 01/16/17 00:00 72 01/15/17 20:30 99.4 80 20 115/62 (79) 97 01/15/17 20:00 76 01/15/17 16:42 99.7 85 20 139/69 (92) 94 01/15/17 12:30 99.0 80 20 118/61 (80) 98 I/O 01/15/17 01/15/17 01/15/17 01/16/17 01/16/17 01/16/17 07:00 15:00 23:00 07:00 15:00 23:00 Intake Total 1100 ml 480 ml Output Total 0 ml 450 ml Balance 1100 ml 480 ml -450 ml Intake Oral 1100 ml 480 ml Output Urine Total 0 ml 450 ml # Voids 3 # Bowel Movements 0 1 1 Result Diagram: 01/16/1755 01/16/17 06 Objective Remarks GENERAL: NAD, A&Ox3 HEAD: Normocephalic. NECK: Supple, trachea midline. No lymphadenopathy. EYES: No scleral icterus. No injection or drainage. CARDIOVASCULAR: Regular rate and rhythm without murmurs, gallops, or rubs. RESPIRATORY: Breath sounds equal bilaterally. No accessory muscle use. GASTROINTESTINAL: Abdomen soft, non-tender, nondistended. MUSCULOSKELETAL: No cyanosis, or edema. SKIN: Warm and dry. NEURO: No focal neurological deficitis. A/P Problem List: (1) Colorectal cancer, stage IV ICD Code: C19 - Malignant neoplasm of rectosigmoid junction (2) Neutropenic fever ICD Code: D70.9 - Neutropenia, unspecified; R50.81 - Fever presenting with conditions classified elsewhere (3) Hypertension ICD Code: I10 - Essential (primary) hypertension (4) Sepsis ICD Code: A41.9 - Sepsis, unspecified organism Assessment and Plan Assessment and plan 71-year-old male admitted secondary to neutropenic fever with sepsis and diarrhea. Patient has received Neupogen. Monitor white blood cell count. Monitor hemoglobin levels. Potassium low today and the replacement given. CBC and BMP in the morning. Labs reviewed. Labs ordered. Sepsis Resolved Neutropenic fever Diarrhea Cover with cefepime Urinalysis pending C. difficile screen is negative Start Imodium on an as-needed basis Oncology following Anemia May be part of pancytopenia, monitor CBC Follow hemoglobin levels Consider transfusion of hemoglobin declines further Colon cancer Oncology following Hold chemotherapy for now Hypertension Blood pressures are presently borderline low, likely secondary to infection Hold lisinopril for now DVT prophylaxis Lovenox Hugo Black MD Jan 16, 2017 10:13
[2017-01-16 10:16] LABS: BANDS 24 % (0-6); BLASTS 2 % (0-0); EOSINOPHILS 7 % (0-4); METAMYELOCYTES 1 % (0-1); MYELOCYTES 1 % (0-0); NEUTROPHIL # MANUAL DIFF 0.5 TH/MM3 (1.8-7.7); PLATELET ESTIMATE SMEAR LOW (NORMAL); PLATELET MORPHOLOGY NORMAL (NORMAL); POLYS (SEG NEUTROPHILS) 17 % (16-70); SCAN/DIFF FINAL DIFF MANUAL; WBC DIFF SAMPLE 100
[2017-01-16 10:17] LABS: TEARDROP RBCS 1+ (NORMAL)
--- NOTE | 2017-01-16 13:18 | MB ---
cc: JAZMINE PEREZ M.D. DATE OF CONSULTATION: 01/16/2017. REASON FOR CONSULTATION: Oncology was consulted to render opinion regarding a patient with metastatic colorectal cancer who presented with neutropenic fever. ATTENDING PHYSICIAN: Dr. Black. HISTORY OF PRESENT ILLNESS: The patient is a very pleasant 71-year-old male who presented to the hospital with complaint of increased weakness, diarrhea and low grade temperature. He recently was started back on cetuximab and irinotecan. He was found to be neutropenic and was admitted for further management. He was diagnosed with metastatic colorectal cancer in August of 2015. He had been treated with various chemotherapy most recently irinotecan and Erbitux. His recent scan reportedly showed stable disease. He denies any chest pain or palpitations. Denies any significant nausea or vomiting or abdominal pain. He denies any melena. PAST MEDICAL HISTORY: 1. Metastatic colorectal cancer. 2. Kidney stones. 3. Osteoarthritis. PAST SURGICAL HISTORY: 1. Colonoscopy. 2. Knee surgery. 3. Appendectomy. 4. Port placement. FAMILY HISTORY: The mother had breast cancer. A sister had liver cancer. SOCIAL HISTORY: A 30 pack/year smoking history and quit about 20 years ago. He drinks occasionally. ALLERGIES: 1. 5-FU. MEDICATIONS: 1. Cefepime. 2. Neupogen. REVIEW OF SYSTEMS: CONSTITUTIONAL: As above. EYES: Negative. ENT: Negative. CARDIOVASCULAR: Denies any chest pressure or palpitations. RESPIRATORY: Denies any shortness of breath or cough. GI: As above. : Denies any dysuria or hematuria. MUSCULOSKELETAL: Negative. HEMATOLOGIC: As above. ENDOCRINE: Negative. DERMATOLOGIC: Negative. PSYCHIATRIC: Negative. NEUROLOGIC: Negative. PHYSICAL EXAMINATION: VITAL SIGNS: Temperature 98.2, blood pressure 113/59, O2 saturation 97%. GENERAL: He is alert and oriented times three and in no acute distress. HEAD, EYES, EARS, NOSE, THROAT: Atraumatic, normocephalic. Pupils equal, round, reactive to light. Extraocular muscles are intact. No scleral icterus. OROPHARYNX: Dry mucosa. No lesions. NECK: No thyromegaly. No palpable mass. LYMPHATIC: No palpable cervical, clavicular, axillary or inguinal lymph nodes. CARDIOVASCULAR: Regular S1-S2. No murmur. LUNGS: Clear to auscultation bilaterally. No wheezing or rhonchi. ABDOMEN: Abdomen soft. I could not palpate liver or spleen. Positive bowel sounds. EXTREMITIES: No cyanosis or clubbing. Trace ankle edema. No calf tenderness. SKIN: No rash or petechiae. NEUROLOGIC EXAM: Nonfocal. LABORATORY DATA: Reviewed. ASSESSMENT: 1. Metastatic colorectal cancer. He was first diagnosed in August of 2015. At that time, he was found to have liver metastasis. He was treated with Xeloda with radiation. He then underwent resection of the primary mass as well as liver metastasis in March of 2016. He was treated with Avastin and FOLFOX. In December of 2015, he was found to have new liver metastasis. He had radiofrequency ablation and chemoembolization for the liver metastasis. He was then started on irinotecan and Erbitux. He developed cytopenia and the chemotherapy was held for a while. His recent radiologic studies reportedly showed a stable disease. He was re-started back on irinotecan and Erbitux at a reduced dose about ten days ago. He has now developed pancytopenia due to chemotherapy. 2. Febrile neutropenia. Blood culture negative to date. He is on Cefepime. 3. Pancytopenia due to recent chemotherapy. He was started on Neupogen. His WBC is trending up. He does not need transfusion at this time. 4. Diarrhea due to recent chemotherapy. He was started on Lomotil and his symptoms have improved. PLAN: 1. Continue Cefepime pending blood cultures. 2. Continue Neupogen. 3. Monitor CBC. 4. Continue Lomotil. Thank you Dr. Black for asking me to see this patient. MD MEL Torres/JCGraham /12:07 PM /1:03 PM SAMUEL
[2017-01-16] MEDS: FILGRASTIM 480 MCG/1.6 ML VIAL SQ SCH (14:01)
[2017-01-16] MEDS: ACETAMINOPHEN 325 MG TAB PO PRN (14:02)
--- NOTE | 2017-01-16 18:10 | MB ---
cc: PATTIE HANSEN DATE OF CONSULTATION: 01/15/2017. REASON FOR CONSULTATION: Patient with a history of metastatic colon cancer who is being admitted with neutropenia and fevers and diarrhea. HISTORY OF PRESENT ILLNESS: Mr. Jo is a 71-year-old male with a history of stage IV colorectal cancer. This is a KRAS wild type cancer. He is currently being treated with irinotecan and cetuximab. He is irinotecan with 20% dose reduction due to history of leukopenia. The patient recently received cetuximab and irinotecan approximately one week ago. He called the oncology clinic with complaints of fever above 100.8, lethargy as well as diarrhea. He was brought into the oncology clinic and a CBC was obtained. He was found to be severely neutropenic with ANC of less than 500. He has been also experiencing diarrhea over the past four to five days. He was sent to the emergency department. The patient was admitted to the hospital for febrile neutropenia, lethargy, fevers and diarrhea. The patient has a longstanding history of stage IV colon cancer. He has undergone surgical resection, ileostomy and liver resection of the tumor in March of 2016. He previously had been treated with FOLFOX and Avastin. He also received FOLFIRI. He was placed on maintenance Xeloda treatments. However, he developed a severe skin rash and Xeloda was discontinued. PAST MEDICAL HISTORY: 1. Stage IV colon cancer. 2. History of osteoarthritis. 3. History of hemorrhoids. 4. Nephrolithiasis. PAST SURGICAL HISTORY: 1. Ileostomy. 2. History of colonoscopy. 3. Sigmoidoscopy in 2014. 4. Knee surgery in 1961. 5. Appendectomy. ALLERGIES: HE IS ALLERGIC TO 5-FU RESULTING IN SKIN RASHES. MEDICATIONS: 1. Tylenol PRN. 2. Calcium. 3. Centrum. 4. FiberCon Powder. 5. Gas-X tablets PRN. 6. Hydroxyzine PRN. 7. Imodium AD PRN. 8. Iron tablets daily. 9. Lisinopril 20 milligrams tablet daily. 10. Lomotil as needed. 11. Vitamin B12. 12. Vitamin C. 13. Vitamin D3. 14. Zofran PRN. FAMILY HISTORY: Reviewed and noncontributory to this admission. SOCIAL HISTORY: He is a nonsmoker. He does not drink alcohol. No illicit drug use. PHYSICAL EXAMINATION: VITAL SIGNS: Blood pressure is 118/61, pulse is in the 80s, temperature is 99, 02 saturations are 98% on room air. GENERAL: An elderly male who is acutely ill. He is having rigors and chills. HEAD, EYES, EARS, NOSE, THROAT: Pupils are equal, round and reactive to light. Extraocular muscles intact. No oral lesions. NECK: The neck is supple. No jugular venous distention. No bruits. No lymphadenopathy. CHEST: Clear to auscultation bilaterally. CARDIAC: S1-S2. Regular rate and rhythm. ABDOMEN: The abdomen is soft, nontender and nondistended. Bowel sounds are present. EXTREMITIES: No edema, erythema or cyanosis. SKIN: Without any petechiae, lesions or bruises. NEUROLOGIC: No focal deficit. PSYCHIATRIC: Mood and affect is appropriate. LABS: WBCs is 0.4, hemoglobin is 8.9, platelet count is 65,000. Absolute neutrophil count is 100. Serum chemistries show a sodium of 137, potassium 3.6, chloride 106, BUN is 12, creatinine is 0.7, GFR is 111. AST is 9, ALT is 35, alkaline phosphatase 79. Total protein is 4.9, albumin is 2.4. IMAGING STUDIES: Chest x-ray was reviewed. No acute abnormalities. ASSESSMENT AND PLAN: This is a 71-year-old male with a history of KRAS wild type stage IV colon cancer who is currently being treated with irinotecan and cetuximab. He is getting irinotecan at 20% dose reduction due to the history of leukopenia. He is being admitted to the hospital with febrile neutropenia, diarrhea and lethargy. 1. Febrile neutropenia. The patient has been started on daily Neupogen. Continue IV cefepime. Blood cultures were obtained and will follow up on the blood cultures. If he continues to spike fevers, we will add Vancomycin. His chest x-ray does not show any evidence of pneumonia. His port site is also clean and without any tenderness, erythema or swelling to indicate any underlying infection arising from the port. 2. Diarrhea. Will start Imodium and Lomotil PRN. Will check C. difficile although I believe that it is unlikely that he has C. difficile colitis. His diarrhea is most likely secondary to chemotherapy. Will continue IV hydration. 3. Anemia, which is normocytic. Hemoglobin of 9.2. There has been a slight drop from his baseline. The anemia is also secondary to chemotherapy. We will continue to monitor. 4. Thrombocytopenia with platelet count of 72,000. There is no evidence of any bleeding. Will continue to monitor. This is also secondary to chemotherapy. 5. Stage IV colorectal cancer. Further treatment decisions will be made outpatient, either further dose-reduce irinotecan or discontinue this agent. Thank you for allowing me to participate in the care of this patient. I will continue to follow this patient along. MD CRYSTAL Julien/[place] /5:30 PM /5:53 PM
[2017-01-16] MEDS: ZOLPIDEM TARTRATE 5 MG TAB PO PRN (21:27)
[2017-01-16] MEDS: DIPHENOXYLATE/ATROPINE 2.5 MG/0.025 MG TAB PO PRN (22:56)
[2017-01-17] VITALS (8 sets, daily range): BP systolic 118–143; BP diastolic 56–72; PULSE 61–82; RESP 16–18; TEMP 96.7–98.7; O2SAT 96–99
[2017-01-17] MEDS: ACETAMINOPHEN 325 MG TAB PO PRN (01:46)
[2017-01-17] MEDS: SODIUM CHLOR 0.9% 1000 ML INJ 1,000 ML IV SCH ×2 (01:52→12:42)
[2017-01-17] MEDS: CEFEPIME INJ 2,000 MG in SODIUM CHLORIDE 0.9% INJ 100 ML IV SCH ×3 (06:19→22:23)
[2017-01-17 08:15] LABS: AUTOMATED NEUTROPHIL # 4.1 TH/MM3 (1.8-7.7); BASOPHIL % 0.2 % (0.0-2.0); EOSINOPHIL # 0.1 TH/MM3 (0-0.4); EOSINOPHIL % 2.1 % (0.0-4.0); HEMATOCRIT 27.7 % (39.0-51.0); LYMPH % 6.4 % (9.0-44.0); LYMPHOCYTE # 0.3 TH/MM3 (1.0-4.8); MEAN CELL VOLUME 92.3 FL (80.0-100.0); MEAN CORPUSCULAR HEMOGLOBIN 31.9 PG (27.0-34.0); MEAN CORPUSCULAR HGB CONC 34.6 % (32.0-36.0); MONO % 7.9 % (0.0-8.0); NEUT % 83.4 % (16.0-70.0); PLATELET COUNT 79 TH/MM3 (150-450); RED CELL DISTRIBUTION WIDTH 13.5 % (11.6-17.2)
[2017-01-17 08:19] LABS: HEMO FLAGS AUTO DIFF
[2017-01-17 08:28] LABS: ANION GAP 7 MEQ/L (5-15); AST (GOT) 14 U/L (15-37); BLOOD UREA NITROGEN 3 MG/DL (7-18); CHLORIDE 109 MEQ/L (98-107); GLOMERULAR FILTRATION RATE 144 ML/MIN (>89); POTASSIUM 3.4 MEQ/L (3.5-5.1); SODIUM (NA) 142 MEQ/L (136-145)
[2017-01-17 08:29] LABS: ALT (GPT) 33 U/L (12-78)
[2017-01-17 08:31] LABS: ALKALINE PHOSPHATASE 97 U/L (45-117); TOTAL BILIRUBIN ADULT 0.7 MG/DL (0.2-1.0)
[2017-01-17] MEDS ORDERED: POTASSIUM CHLORIDE 20 MEQ PWD PACKET PO ONE (09:00)
[2017-01-17] MEDS: SODIUM CHLORIDE 0.9% FLUSH 10 ML FLUSH IV FLUSH SCH ×2 (09:00→21:00)
[2017-01-17 09:06] LABS: BANDS 32 % (0-6); EOSINOPHILS 1 % (0-4); METAMYELOCYTES 2 % (0-1); MYELOCYTES 1 % (0-0); NEUTROPHIL # MANUAL DIFF 4.2 TH/MM3 (1.8-7.7); OVALOCYTES 1+ (NORMAL); POLYS (SEG NEUTROPHILS) 49 % (16-70); WBC DIFF SAMPLE 100
[2017-01-17 09:07] LABS: PLATELET ESTIMATE SMEAR LOW (NORMAL); PLATELET MORPHOLOGY NORMAL (NORMAL); SCAN/DIFF FINAL DIFF MANUAL; TOXIC GRANULATION 2+ (NORMAL)
--- NOTE | 2017-01-17 12:09 | PD.ONC.PN ---
Subjective Subjective Remarks Afebrile overnight. patient resting in bed in nad. "I want to go home." Had a formed BM overnight. no further diarrhea. denies abdominal pain. Objective Data Date Time Temp Pulse Resp B/P (MAP) Pulse Ox O2 Delivery O2 Flow Rate FiO2 01/17/17 08:00 96.7 82 16 143/72 (95) 96 01/17/17 04:40 96.9 69 17 128/61 (83) 96 01/17/17 04:00 73 01/17/17 00:45 97.4 69 18 140/66 (90) 99 01/17/17 00:00 72 01/16/17 20:40 98.2 71 18 137/66 (89) 98 01/16/17 20:00 67 01/16/17 16:07 75 01/16/17 16:00 97.8 67 18 145/63 (90) 99 01/16/17 12:00 58 01/16/17 12:00 97.0 71 18 121/66 (84) 99 Result Diagram: 01/17/17 0703 01/17/17 0730 Laboratory Results Laboratory Tests Test 01/17/17 07:03 01/17/17 07:30 White Blood Count 5.0 TH/MM3 Red Blood Count 3.00 MIL/MM3 Hemoglobin 9.6 GM/DL Hematocrit 27.7 % Mean Corpuscular Volume 92.3 FL Mean Corpuscular Hemoglobin 31.9 PG Mean Corpuscular Hemoglobin Concent 34.6 % Red Cell Distribution Width 13.5 % Platelet Count 79 TH/MM3 Mean Platelet Volume 9.4 FL Neutrophils (%) (Auto) 83.4 % Lymphocytes (%) (Auto) 6.4 % Monocytes (%) (Auto) 7.9 % Eosinophils (%) (Auto) 2.1 % Basophils (%) (Auto) 0.2 % Neutrophils # (Auto) 4.1 TH/MM3 Lymphocytes # (Auto) 0.3 TH/MM3 Monocytes # (Auto) 0.4 TH/MM3 Eosinophils # (Auto) 0.1 TH/MM3 Basophils # (Auto) 0.0 TH/MM3 CBC Comment AUTO DIFF Differential Total Cells Counted 100 Neutrophils % (Manual) 49 % Band Neutrophils % 32 % Lymphocytes % 10 % Monocytes % 5 % Eosinophils % 1 % Neutrophils # (Manual) 4.2 TH/MM3 Metamyelocytes 2 % Myelocytes 1 % Differential Comment FINAL DIFF MANUAL Toxic Granulation 2+ Platelet Estimate LOW Platelet Morphology Comment NORMAL Ovalocytes 1+ Blood Urea Nitrogen 3 MG/DL Creatinine 0.56 MG/DL Random Glucose 93 MG/DL Total Protein 5.4 GM/DL Albumin 2.4 GM/DL Calcium Level 8.4 MG/DL Alkaline Phosphatase 97 U/L Aspartate Amino Transf (AST/SGOT) 14 U/L Alanine Aminotransferase (ALT/SGPT) 33 U/L Total Bilirubin 0.7 MG/DL Sodium Level 142 MEQ/L Potassium Level 3.4 MEQ/L Chloride Level 109 MEQ/L Carbon Dioxide Level 26.0 MEQ/L Anion Gap 7 MEQ/L Estimat Glomerular Filtration Rate 144 ML/MIN Culture Results Microbiology Date/Time Source Procedure Growth Status 01/16/17 09:15 Blood Line Aerobic Blood Culture - Preliminary NO GROWTH IN 1 DAY Resulted 01/16/17 09:15 Blood Line Anaerobic Blood Culture - Preliminary NO GROWTH IN 1 DAY Resulted 01/16/17 09:10 Blood Peripheral Aerobic Blood Culture - Preliminary NO GROWTH IN 1 DAY Resulted 01/16/17 09:10 Blood Peripheral Anaerobic Blood Culture - Preliminary NO GROWTH IN 1 DAY Resulted Administered Medications Medications (Trade) Dose Ordered Sig/Linda Route PRN Reason Start Time Stop Time Status Last Admin Dose Admin Sodium Chloride 1,000 ml @ 100 mls/hr Q10H IV 01/14/17 15:39 01/17/17 01:52 Ondansetron HCl (Zofran Inj) 4 mg Q6H PRN IVP NAUSEA OR VOMITING 01/14/17 15:45 01/15/17 11:01 Acetaminophen/ Hydrocodone Bitart ([place] 5-325 Mg) 1 tab Q4H PRN PO PAIN SCALE 3 TO 5 01/14/17 15:45 01/15/17 17:06 Cefepime HCl 2000 mg/Sodium Chloride 100 ml @ 200 mls/hr Q8H IV 01/15/17 23:00 01/17/17 06:19 Diphenoxylate HCl/ Atropine (Lomotil Tab) 1 tab Q6H PRN PO diarrhea 01/15/17 14:00 01/16/17 22:56 Acetaminophen (Tylenol) 650 mg Q4H PRN PO fever, HALL 01/15/17 20:15 01/17/17 01:46 Zolpidem Tartrate (Ambien) 5 mg HS PRN PO sleep 01/15/17 21:00 01/16/17 21:27 Objective Remarks GENERAL: chronically ill appearing male lying in bed in nad. SKIN: Warm and dry. HEAD: Normocephalic. EYES: No injection or drainage. NECK: Supple, trachea midline. CARDIOVASCULAR: Regular rate and rhythm RESPIRATORY: Breath sounds equal bilaterally. No accessory muscle use. GASTROINTESTINAL: Abdomen soft, non-tender. + old scar noted EXTREMITIES: No cyanosis NEUROLOGICAL: aox3. normal speech. moving all extremities. Assessment/Plan Problem List: (1) Neutropenic fever ICD Codes: D70.9 - Neutropenia, unspecified; R50.81 - Fever presenting with conditions classified elsewhere Status: Resolved Plan: --BC no growth --on Cefepime --U/A no infection --CXR no pneumonia. 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 Plan 1. clear for discharge. follow up in clinic. 2. stop Neupogen 3. continue supportive care Attending Statement The exam, history, and the medical decision-making described in the above note were completed with the assistance of the mid-level provider. I reviewed and agree with the findings presented. I attest that I had a [id number] encounter with the patient on the same day, and personally performed and documented my assessment and findings in the medical record. Francesca Bowman Jan 17, 2017 11:36 Drew Lebron MD Jan 18, 2017 00:00
--- NOTE | 2017-01-17 13:04 | MB ---
cc: DIANE MINER MD DATE OF CONSULTATION: 01/17/[address] Black. REASON FOR CONSULTATION Neutropenic fever, unknown source. Recommendations regarding antibiotic coverage at discharge. HISTORY OF PRESENT ILLNESS This is a 71-year-old white male who has history of metastatic colon carcinoma. The patient has been receiving chemotherapy. He received chemotherapy in the form of cetuximab and irinotecan about a week ago. The patient developed severe fatigue along with diarrhea and low grade fever. He presented to the emergency room from the oncologist office for evaluation and was noted to have temperature of 100.9 degrees and white count of 0.6, platelet count of 95.. Chest x-ray showed no acute disease. Blood culture was obtained and has no growth in 1 day. Another set of blood culture was obtained on 01/14 and had no growth in 3 days. The patient states that he feels a lot better. He states that his energy level is back to normal. He denies chills, fever, nausea, vomiting, shortness of breath, cough, sputum production, dysuria. He also notes that his stools have improved and today stools are formed. A stool C-difficile toxin was negative on 01/14. The patient has no other complaints. PAST MEDICAL HISTORY 1. Metastatic colon cancer. Patient is status post chemotherapy. 2. Osteoarthritis. 3. Kidney stones. 4. Appendectomy. 5. Knee surgery. 6. Port placement. ALLERGIES 5-FU. MEDICATIONS 1. Cefepime. 2. Zofran p.r.n. SOCIAL HISTORY Former tobacco smoker who quit 20 years ago. Occasional alcohol. No illicit drugs. FAMILY HISTORY Noncontributory. REVIEW OF SYSTEMS CONSTITUTIONAL: Significant for fever and chills, now resolved. HEENT: No visual blurring or diplopia. No difficulty swallowing or soreness of the throat. No nasal bleeding or discharge. NECK: No neck swelling or neck pain. CARDIOVASCULAR: Denies palpitation or chest pain. RESPIRATORY: Denies cough or shortness of breath. GASTROINTESTINAL: Denies nausea, vomiting or abdominal pain. Prior diarrhea now resolved. GENITOURINARY: No urgency, frequency or dysuria. MUSCULOSKELETAL: No muscle aches or pains. HEMATOLOGIC: Easy bruising. Denies easy bleeding. ENDOCRINE: No polyuria or polydipsia. INTEGUMENTARY: No skin rash or itching. PSYCHIATRIC: No problems with depression or mood changes. NEUROLOGIC: No problems with coordination or gait. PHYSICAL EXAMINATION GENERAL: This is a pleasant, well-developed male, in no acute distress. He is awake and alert and oriented. VITAL SIGNS: Include temperature 96.7, BP 143/72, respirations 16, heart rate 82. HEENT: The head is atraumatic. Extraocular movements grossly intact. Pupils reactive to light. No icterus. Oropharynx no visible lesions. NECK: Supple without adenopathy or swelling. LUNGS: Clear, breath sounds throughout. HEART: Regular, S1 and S2. No murmurs, rubs or gallops. ABDOMEN: Bowel sounds present, soft, no tenderness appreciated. No masses palpable. RECTAL: Not performed. EXTREMITIES: No clubbing or cyanosis or edema. Few ecchymotic areas at the upper extremities. SKIN: No diffuse rash. The patient has erythematous hue to the skin of his face. NEUROLOGIC: Nonfocal. PSYCHIATRIC: Calm and cooperative. LABORATORY DATA WBC 5.0, platelets 79, 83% neutrophils, hemoglobin 9.6, creatinine 0.56, BUN 3, sodium 142. Liver function tests normal. IMPRESSION 1. Neutropenic fever which has improved. The patient received Neupogen. The temperature is normal and prior blood culture on 01/14 was negative. However, repeat blood culture of 01/16 has no growth in 1 day. The patient did have low grade fever of 100.1 degrees early yesterday morning. 2. Metastatic colon cancer in patient who has been receiving chemotherapy. Clinically the patient appears stable and his white count is better with the Neupogen and also his temperature is improved. I think we can safely discharge him tomorrow if the blood culture from 01/16 is negative. I would give him a short course of p.o. Levaquin for approximately 5 days and ask him to monitor his stools and if he starts having any diarrhea while on the Levaquin he can stop it. Recommended Levaquin dose for him is 750 mg p.o. once a day. The patient's progress will be followed if he remains in the hospital and has additional issues concerning potential infection. Thank you for this consultation on this pleasant gentleman. Diane Miner MD FD/MAYR /12:23 PM /12:44 PM MTDNeida
--- NOTE | 2017-01-17 14:32 | HHI.PR ---
Subjective Remarks Significant improvement today. White blood cell count 5.0 today. Hemoglobin 9.6. Platelets are not 79. No new complaints from patient. Diarrhea is improved. Objective Vital Signs Date Time Temp Pulse Resp B/P (MAP) Pulse Ox O2 Delivery O2 Flow Rate FiO2 01/17/17 08:00 96.7 82 16 143/72 (95) 96 01/17/17 04:40 96.9 69 17 128/61 (83) 96 01/17/17 04:00 73 01/17/17 00:45 97.4 69 18 140/66 (90) 99 01/17/17 00:00 72 01/16/17 20:40 98.2 71 18 137/66 (89) 98 01/16/17 20:00 67 01/16/17 16:07 75 01/16/17 16:00 97.8 67 18 145/63 (90) 99 I/O 01/16/17 01/16/17 01/16/17 01/17/17 01/17/17 01/17/17 07:00 15:00 23:00 07:00 15:00 23:00 Intake Total 940 ml Output Total 450 ml Balance -450 ml 940 ml Intake Oral 840 ml IV Total 100 ml Output Urine Total 450 ml # Voids 4 1 # Bowel Movements 1 2 Result Diagram: 01/17/17 0703 01/17/17 0730 Objective Remarks GENERAL: NAD, A&Ox3 HEAD: Normocephalic. NECK: Supple, trachea midline. No lymphadenopathy. EYES: No scleral icterus. No injection or drainage. CARDIOVASCULAR: Regular rate and rhythm without murmurs, gallops, or rubs. RESPIRATORY: Breath sounds equal bilaterally. No accessory muscle use. GASTROINTESTINAL: Abdomen soft, non-tender, nondistended. MUSCULOSKELETAL: No cyanosis, or edema. SKIN: Warm and dry. NEURO: No focal neurological deficitis. A/P Problem List: (1) Colorectal cancer, stage IV ICD Code: C19 - Malignant neoplasm of rectosigmoid junction (2) Neutropenic fever ICD Code: D70.9 - Neutropenia, unspecified; R50.81 - Fever presenting with conditions classified elsewhere Status: Resolved (3) Hypertension ICD Code: I10 - Essential (primary) hypertension (4) Sepsis ICD Code: A41.9 - Sepsis, unspecified organism Assessment and Plan Assessment and plan 71-year-old male admitted secondary to neutropenic fever with sepsis and diarrhea. Improving. Possible discharge tomorrow. Awaiting final culture. CBC and BMP ordered. Labs reviewed. Sepsis Resolved Neutropenic fever Diarrhea Cover with cefepime Urinalysis pending C. difficile screen is negative Start Imodium on an as-needed basis Oncology following Anemia May be part of pancytopenia, monitor CBC Follow hemoglobin levels Consider transfusion of hemoglobin declines further Colon cancer Oncology following Hold chemotherapy for now Hypertension Blood pressures are presently borderline low, likely secondary to infection Hold lisinopril for now DVT prophylaxis Lovenox Hugo Black MD Jan 17, 2017 14:32
[2017-01-17] MEDS: ZOLPIDEM TARTRATE 5 MG TAB PO PRN (22:08)
[2017-01-18] VITALS: BP 125/67; PULSE 75; RESP 17; TEMP 97.6; O2SAT 99
[2017-01-18 04:00] VITALS: BP 129/71; PULSE 64; RESP 17; TEMP 97.4; O2SAT 97
[2017-01-18 05:19] VITALS: PULSE 86
[2017-01-18] MEDS: SODIUM CHLORIDE 0.9% FLUSH 10 ML FLUSH IV FLUSH SCH (07:23)
[2017-01-18] MEDS: CEFEPIME INJ 2,000 MG in SODIUM CHLORIDE 0.9% INJ 100 ML IV SCH (07:23)
[2017-01-18 08:00] VITALS: BP 145/72; PULSE 86; RESP 16; TEMP 97; O2SAT 99
[2017-01-18 08:49] LABS: AUTOMATED NEUTROPHIL # 5.9 TH/MM3 (1.8-7.7); BASOPHIL % 0.2 % (0.0-2.0); EOSINOPHIL # 0.1 TH/MM3 (0-0.4); EOSINOPHIL % 1.6 % (0.0-4.0); HEMATOCRIT 27.8 % (39.0-51.0); LYMPH % 7.2 % (9.0-44.0); LYMPHOCYTE # 0.5 TH/MM3 (1.0-4.8); MEAN CELL VOLUME 92.6 FL (80.0-100.0); MEAN CORPUSCULAR HEMOGLOBIN 32.2 PG (27.0-34.0); MEAN CORPUSCULAR HGB CONC 34.7 % (32.0-36.0); MONO % 6.1 % (0.0-8.0); NEUT % 84.9 % (16.0-70.0); PLATELET COUNT 107 TH/MM3 (150-450); RED BLOOD COUNT 3.01 MIL/MM3 (4.50-5.90); RED CELL DISTRIBUTION WIDTH 13.7 % (11.6-17.2)
[2017-01-18 08:55] LABS: HEMO FLAGS AUTO DIFF
[2017-01-18 09:04] LABS: ALT (GPT) 34 U/L (12-78); ANION GAP 6 MEQ/L (5-15); AST (GOT) 17 U/L (15-37); BICARBONATE 26.9 MEQ/L (21.0-32.0); BLOOD UREA NITROGEN 3 MG/DL (7-18); CHLORIDE 109 MEQ/L (98-107); GLOMERULAR FILTRATION RATE 124 ML/MIN (>89); POTASSIUM 3.2 MEQ/L (3.5-5.1); SODIUM (NA) 142 MEQ/L (136-145)
[2017-01-18 09:06] LABS: ALKALINE PHOSPHATASE 114 U/L (45-117); TOTAL BILIRUBIN ADULT 0.4 MG/DL (0.2-1.0)
[2017-01-18] MEDS ORDERED: LEVA750T9 PO (10:50)
[2017-01-18] MEDS ORDERED: LACTTAB8 PO (10:50)
[2017-01-18] MEDS ORDERED: POTASSIUM CHLORIDE 10 MEQ CONTROLLED RELEASE TAB PO ONE (11:00)
--- NOTE | 2017-01-18 11:04 | PD.ONC.PN ---
Subjective Subjective Remarks Afebrile overnight. Patient resting in bed in nad. No complaints. Eager to go home. Objective Data Date Time Temp Pulse Resp B/P (MAP) Pulse Ox O2 Delivery O2 Flow Rate FiO2 01/18/17 05:19 86 01/18/17 04:00 97.4 64 17 129/71 (90) 97 01/18/17 00:00 97.6 75 17 125/67 (86) 99 01/17/17 20:00 98.0 71 18 138/64 (88) 98 01/17/17 16:00 98.5 64 16 118/56 (76) 97 01/17/17 12:00 98.7 61 16 123/61 (81) 96 Result Diagram: 01/18/17 0740 01/18/17 0740 Laboratory Results Laboratory Tests Test 01/18/17 07:40 White Blood Count 7.0 TH/MM3 Red Blood Count 3.01 MIL/MM3 Hemoglobin 9.7 GM/DL Hematocrit 27.8 % Mean Corpuscular Volume 92.6 FL Mean Corpuscular Hemoglobin 32.2 PG Mean Corpuscular Hemoglobin Concent 34.7 % Red Cell Distribution Width 13.7 % Platelet Count 107 TH/MM3 Mean Platelet Volume 9.9 FL Neutrophils (%) (Auto) 84.9 % Lymphocytes (%) (Auto) 7.2 % Monocytes (%) (Auto) 6.1 % Eosinophils (%) (Auto) 1.6 % Basophils (%) (Auto) 0.2 % Neutrophils # (Auto) 5.9 TH/MM3 Lymphocytes # (Auto) 0.5 TH/MM3 Monocytes # (Auto) 0.4 TH/MM3 Eosinophils # (Auto) 0.1 TH/MM3 Basophils # (Auto) 0.0 TH/MM3 CBC Comment AUTO DIFF Blood Urea Nitrogen 3 MG/DL Creatinine 0.64 MG/DL Random Glucose 93 MG/DL Total Protein 5.5 GM/DL Albumin 2.4 GM/DL Calcium Level 8.4 MG/DL Alkaline Phosphatase 114 U/L Aspartate Amino Transf (AST/SGOT) 17 U/L Alanine Aminotransferase (ALT/SGPT) 34 U/L Total Bilirubin 0.4 MG/DL Sodium Level 142 MEQ/L Potassium Level 3.2 MEQ/L Chloride Level 109 MEQ/L Carbon Dioxide Level 26.9 MEQ/L Anion Gap 6 MEQ/L Estimat Glomerular Filtration Rate 124 ML/MIN Culture Results Microbiology Date/Time Source Procedure Growth Status 01/16/17 09:15 Blood Line Aerobic Blood Culture - Preliminary NO GROWTH IN 1 DAY Resulted 01/16/17 09:15 Blood Line Anaerobic Blood Culture - Preliminary NO GROWTH IN 1 DAY Resulted 01/16/17 09:10 Blood Peripheral Aerobic Blood Culture - Preliminary NO GROWTH IN 1 DAY Resulted 01/16/17 09:10 Blood Peripheral Anaerobic Blood Culture - Preliminary NO GROWTH IN 1 DAY Resulted Administered Medications Medications (Trade) Dose Ordered Sig/Linda Route PRN Reason Start Time Stop Time Status Last Admin Dose Admin Sodium Chloride (NS Flush) 2 ml BID IV FLUSH 01/14/17 21:00 01/18/17 07:23 Ondansetron HCl (Zofran Inj) 4 mg Q6H PRN IVP NAUSEA OR VOMITING 01/14/17 15:45 01/15/17 11:01 Acetaminophen/ Hydrocodone Bitart ([place] 5-325 Mg) 1 tab Q4H PRN PO PAIN SCALE 3 TO 5 01/14/17 15:45 01/15/17 17:06 Cefepime HCl 2000 mg/Sodium Chloride 100 ml @ 200 mls/hr Q8H IV 01/15/17 23:00 01/18/17 07:23 Diphenoxylate HCl/ Atropine (Lomotil Tab) 1 tab Q6H PRN PO diarrhea 01/15/17 14:00 01/16/17 22:56 Loperamide HCl (Imodium Liq) 2 mg UNSCH PRN PO DIARRHEA 01/15/17 15:30 01/17/17 22:08 Acetaminophen (Tylenol) 650 mg Q4H PRN PO fever, HALL 01/15/17 20:15 01/17/17 01:46 Zolpidem Tartrate (Ambien) 5 mg HS PRN PO sleep 01/15/17 21:00 01/17/17 22:08 Objective Remarks GENERAL: chronically ill male sitting up in bed in [facility]. SKIN: Warm and dry. HEAD: Normocephalic. EYES: No injection or drainage. NECK: Supple, trachea midline. CARDIOVASCULAR: Regular rate and rhythm RESPIRATORY: Breath sounds equal bilaterally. No accessory muscle use. GASTROINTESTINAL: Abdomen soft, non-tender. + old scar noted EXTREMITIES: No cyanosis NEUROLOGICAL: awake and alert, normal speech. moving all extremities. Assessment/Plan Problem List: (1) Neutropenic fever ICD Codes: D70.9 - Neutropenia, unspecified; R50.81 - Fever presenting with conditions classified elsewhere Status: Resolved Plan: --BC no growth --recommend d/c home on Levaquin --U/A no infection --CXR no pneumonia. 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 Plan 1. clear for discharge. 2. follow up in clinic. Attending Statement The exam, history, and the medical decision-making described in the above note were completed with the assistance of the mid-level provider. I reviewed and agree with the findings presented. I attest that I had a [id number] encounter with the patient on the same day, and personally performed and documented my assessment and findings in the medical record. Francesca Bowman Jan 18, 2017 11:04 Drew Lebron MD Jan 19, 2017 01:45
[2017-01-18 12:23] LABS: BANDS 33 % (0-6); BLASTS 1 % (0-0); EOSINOPHILS 5 % (0-4); METAMYELOCYTES 2 % (0-1); MYELOCYTES 1 % (0-0); NEUTROPHIL # MANUAL DIFF 6.3 TH/MM3 (1.8-7.7); OVALOCYTES 1+ (NORMAL); PLATELET ESTIMATE SMEAR LOW (NORMAL); PLATELET MORPHOLOGY NORMAL (NORMAL); POLYS (SEG NEUTROPHILS) 54 % (16-70); SCAN/DIFF FINAL DIFF MANUAL; TOXIC GRANULATION 2+ (NORMAL); WBC DIFF SAMPLE 100
--- NOTE | 2017-01-18 13:10 | HHI.DS ---
Discharge Summary Admission Date Jan 14, 2017 at 15:41 Discharge Date: Jan 18, 2017 Admitting Diagnosis neutropenic fever (1) Neutropenic fever ICD Code: D70.9 - Neutropenia, unspecified; R50.81 - Fever presenting with conditions classified elsewhere Diagnosis: Principal Status: Resolved (2) Sepsis ICD Code: A41.9 - Sepsis, unspecified organism Diagnosis: Principal (3) Hypertension ICD Code: I10 - Essential (primary) hypertension Diagnosis: Principal Procedures None Brief History - From Admission Mr. Jo is a 8-year-old male. He has a past history of colon cancer and has had colon resection for this. Presently she is undergoing maintenance chemotherapy. He says after he started this recent maintenance therapy he had an onset of neutropenia. Now he presents to the emergency department with 3 days of fever, diarrhea, and malaise. She cannot recall any previous history of neutropenic fever with previous episodes of chemotherapy. She cannot recall any previous infections. He does not report any symptoms of infection including cough, dysuria, or skin infection. She has had diarrhea which might represent infection. He says after he's received antibiotics in the ER he starting to feel better. No other complaints. CBC/BMP: 01/18/17 0740 01/18/17 0740 Significant Findings Laboratory Tests Test 01/15/17 13:45 01/16/17 06:55 01/17/17 07:03 01/17/17 07:30 White Blood Count 1.1 TH/MM3 (4.0-11.0) Red Blood Count 2.94 MIL/MM3 (4.50-5.90) 3.00 MIL/MM3 (4.50-5.90) Hemoglobin 9.2 GM/DL (13.0-17.0) 9.6 GM/DL (13.0-17.0) Hematocrit 27.4 % (39.0-51.0) 27.7 % (39.0-51.0) Platelet Count 72 TH/MM3 (150-450) 79 TH/MM3 (150-450) Monocytes (%) (Auto) 22.7 % (0.0-8.0) Eosinophils (%) (Auto) 6.7 % (0.0-4.0) Neutrophils # (Auto) 0.6 TH/MM3 (1.8-7.7) Lymphocytes # (Auto) 0.2 TH/MM3 (1.0-4.8) 0.3 TH/MM3 (1.0-4.8) Band Neutrophils % 24 % (0-6) 32 % (0-6) Monocytes % 22 % (0-8) Eosinophils % 7 % (0-4) Neutrophils # (Manual) 0.5 TH/MM3 (1.8-7.7) Myelocytes 1 % (0-0) 1 % (0-0) Blastocytes 2 % (0-0) Platelet Estimate LOW (NORMAL) LOW (NORMAL) Tear Drop Cells 1+ (NORMAL) Blood Urea Nitrogen 4 MG/DL (7-18) 3 MG/DL (7-18) Creatinine 0.57 MG/DL (0.60-1.30) 0.56 MG/DL (0.60-1.30) Total Protein 5.2 GM/DL (6.4-8.2) 5.4 GM/DL (6.4-8.2) Albumin 2.4 GM/DL (3.4-5.0) 2.4 GM/DL (3.4-5.0) Calcium Level 8.4 MG/DL (8.5-10.1) 8.4 MG/DL (8.5-10.1) Aspartate Amino Transf (AST/SGOT) 9 U/L (15-37) 14 U/L (15-37) Potassium Level 3.4 MEQ/L (3.5-5.1) 3.4 MEQ/L (3.5-5.1) Chloride Level 108 MEQ/L (98-107) 109 MEQ/L (98-107) Neutrophils (%) (Auto) 83.4 % (16.0-70.0) Lymphocytes (%) (Auto) 6.4 % (9.0-44.0) Metamyelocytes 2 % (0-1) Toxic Granulation 2+ (NORMAL) Ovalocytes 1+ (NORMAL) Test 01/18/17 07:40 Red Blood Count 3.01 MIL/MM3 (4.50-5.90) Hemoglobin 9.7 GM/DL (13.0-17.0) Hematocrit 27.8 % (39.0-51.0) Platelet Count 107 TH/MM3 (150-450) Neutrophils (%) (Auto) 84.9 % (16.0-70.0) Lymphocytes (%) (Auto) 7.2 % (9.0-44.0) Lymphocytes # (Auto) 0.5 TH/MM3 (1.0-4.8) Band Neutrophils % 33 % (0-6) Lymphocytes % 2 % (9-44) Eosinophils % 5 % (0-4) Metamyelocytes 2 % (0-1) Myelocytes 1 % (0-0) Blastocytes 1 % (0-0) Toxic Granulation 2+ (NORMAL) Platelet Estimate LOW (NORMAL) Ovalocytes 1+ (NORMAL) Blood Urea Nitrogen 3 MG/DL (7-18) Total Protein 5.5 GM/DL (6.4-8.2) Albumin 2.4 GM/DL (3.4-5.0) Calcium Level 8.4 MG/DL (8.5-10.1) Potassium Level 3.2 MEQ/L (3.5-5.1) Chloride Level 109 MEQ/L (98-107) Hospital Course Mr. Burnett is a 71-year-old male. He was admitted secondary to neutropenia with neutropenic fever. He had been on chemotherapy. This is not a previous problem with chemotherapy in the past. He was covered with antibiotics and improved through time. She was provided Neupogen in his white blood cell count is increased. With antibiotics she also has returned to his baseline well- being. Cultures were all negative including urine culture, stool studies for C. difficile, and urine. No findings on imaging to suggest infection. She did have diarrhea at night and this could've been related to infection versus a reaction to his chemotherapy. At this point she is medically stable for transition to oral Levaquin for the next 5 days. Medically stable for discharge to home today. Pt Condition on Discharge: Stable Discharge Disposition: Discharge Home Discharge Time: <= 30 minutes Discharge Instructions DIET: Follow Instructions for: As Tolerated, No Restrictions Activities you can perform: Regular-No Restrictions Follow up Referrals: Oncology/Hematology - 1 Week PCP Follow-up - 2 Weeks New Medications: Lactobacillus Acidophilus (Lactobacillus Acidophilus) 1 Billion Cell Tab 1 TAB PO TIDAC for Nutritional Supplement, #30 TAB 0 Refills Levofloxacin (Levaquin) 750 Mg Tablet 750 MG PO DAILY for Infection, #5 TAB 0 Refills Hugo Black MD Jan 18, 2017 13:10
== END 2017-01-18 11:43 | disposition home or self-care (01) | DRG 871 ==
LOC: NEPE 14:08 → NEDA 15:41 → HOCB 18:10
PROVIDERS: ADMIT Hospitalist; ATTEND Hospitalist
DX: A41.9 Sepsis, unspecified organism (principal); D61.810 Antineoplastic chemotherapy induced pancytopenia; D70.9 Neutropenia, unspecified; C78.7 Secondary malignant neoplasm of liver and intrahepatic bile duct; R50.81 Fever presenting with conditions classified elsewhere; I10 Essential (primary) hypertension; F17.210 Nicotine dependence, cigarettes, uncomplicated; R19.7 Diarrhea, unspecified; T45.1X5A Adverse effect of antineoplastic and immunosuppressive drugs, initial encounter; Z85.048 Personal history of other malignant neoplasm of rectum, rectosigmoid junction, and anus
CPT/HCPCS: 71010; 80053; 81001; 85007; 85027; 85610; 85730; 87040; 87493; 93005; 96365; 96523; 99214; G0463; J0692; J1442; J1642; J2405; J7030

== ENCOUNTER 2018-01-04 06:57 | Observation (INO) ==
[2018-01-04] MEDS ORDERED: Metoprolol Tartrate 25 MG Tablet PO ONE (07:27)
[2018-01-04] MEDS ORDERED: Chlorhexidine Gluconate 2% 1 Pack (2 Cloths) TOPICAL ONE (07:27)
[2018-01-04] MEDS ORDERED: Sodium Chlor 0.9% Inj 500 ML IV.SIG SCH (08:00)
[2018-01-04] MEDS ORDERED: ceFAZolin 2 GM/NS 100 ML IV; Q8H IV.SIG SCH ×2 (08:00)
[2018-01-04 08:28] LABS: Baso % (Auto) 0.3 % (0.0-2.0); Eos # (Auto) 0.1 th/mm3 (0.0-0.4); Eos % (Auto) 2.6 % (0.0-4.0); Hematocrit 25.7 % (39.0-51.0); Hemoglobin 8.3 gm/dL (13.0-17.0); Lymph # (Auto) 0.2 th/mm3 (1.0-4.8); Lymph % (Auto) 8.1 % (9.0-44.0); Mean Corpuscular HGB Conc 32.4 % (32.0-36.0); Mean Corpuscular Hemoglobin 34.1 pg (27.0-34.0); Mean Corpuscular Volume 105.3 fL (80.0-100.0); Mean Platelet Volume 10.2 fL (7.0-11.0); Mono # (Auto) 0.2 th/mm3 (0.0-0.9); Mono % (Auto) 7.2 % (0.0-8.0); Neut # (Auto) 1.9 th/mm3 (1.8-7.7); Neut % (Auto) 81.8 % (16.0-70.0); Platelet Count 98 th/mm3 (150-450); Red Blood Count 2.44 mil/mm3 (4.50-5.90); Red Cell Distribution Width 17.5 % (11.6-17.2); White Blood Count 2.3 th/mm3 (4.0-11.0)
[2018-01-04] MEDS ORDERED: Heparin Central Flush 100 UNIT/ML 5 ML Vial IV.FLUSH PRN (08:29)
[2018-01-04 08:37] LABS: Activated Partial Thrombo Time 24.6 sec (24.3-30.1); INR 1.1 Ratio; Prothrombin Time 11.1 sec (9.8-11.6)
[2018-01-04 08:52] LABS: Anion Gap 7 meq/L (5-15); Blood Urea Nitrogen 7 mg/dL (7-18); Calcium 7.8 mg/dL (8.5-10.1); Chloride 111 meq/L (98-107); Glomerular Filtration Rate Greater Than 89 mL/min (>89); Glucose,Random 90 mg/dL (74-106); Potassium 3.9 meq/L (3.5-5.1); Sodium 146 meq/L (136-145)
[2018-01-04] MEDS ORDERED: ceFAZolin 2 GM Premix Inj 2 GM/50 ML PIGGYBACK IV.SIG ONE (09:20)
[2018-01-04 09:21] LABS: Platelet Morphology Normal (Normal)
[2018-01-04] MEDS ORDERED: Lidocaine PF 1% Inj 5 ML Syringe OTHER ONE (09:30)
--- NOTE | 2018-01-04 09:39 | ECG ---
Date Performed: 01/04/2018 Time Performed: 07:40:25 PTAGE: 72 years EKG: Sinus rhythm MINIMAL ST DEPRESSION BORDERLINE ECG PREVIOUS TRACING : 01/14/2017 14.57 DOCTOR: Darell Dunn Interpretating Date/Time 01/04/2018 09:38:24
[2018-01-04] MEDS ORDERED: Vancomycin Inj 1,000 MG in Sodium Chlor 0.9% Inj 250 ML IV.SIG SCH (10:00)
[2018-01-04] MEDS ORDERED: Neostigmine Inj 5 MG/5 ML Syringe IV.PUSH ONE (10:50)
[2018-01-04] MEDS ORDERED: Glycopyrrolate Inj 1 MG/5 ML Syringe IV.PUSH ONE (10:50)
--- NOTE | 2018-01-04 11:01 | P.RAD ---
Post CT Procedure Prog Note - Procedure Information Procedure Date: 01/04/18 Supervising Radiologist: Homer Gil MD Estimated blood loss (mL): 10 Anesthesia: General - Plan of Activity Patient to Unit: PACU Patient condition: Good See PACS Report for procedural detail/treatment.
[2018-01-04] MEDS ORDERED: fentaNYL Citrate Inj 100 MCG/2 ML Ampul ONE (11:47)
[2018-01-04] MEDS ORDERED: *Ondansetron Inj 4 MG/2 ML Vial PERIprocedural Use ONLY ONE (12:09)
[2018-01-04] MEDS ORDERED: *morphine SULFATE 4 MG/ML PERIprocedure ONLY ONE (12:12)
[2018-01-04 12:20] LABS: Baso % (Auto) 0.6 % (0.0-2.0); Eos % (Auto) 1.9 % (0.0-4.0); Hematocrit 25.5 % (39.0-51.0); Hemoglobin 8.4 gm/dL (13.0-17.0); Lymph # (Auto) 0.3 th/mm3 (1.0-4.8); Lymph % (Auto) 10.4 % (9.0-44.0); Mean Corpuscular HGB Conc 33.1 % (32.0-36.0); Mean Corpuscular Hemoglobin 35.2 pg (27.0-34.0); Mean Corpuscular Volume 106.4 fL (80.0-100.0); Mean Platelet Volume 9.7 fL (7.0-11.0); Mono # (Auto) 0.1 th/mm3 (0.0-0.9); Neut % (Auto) 82.1 % (16.0-70.0); Platelet Count 95 th/mm3 (150-450); Red Cell Distribution Width 17.7 % (11.6-17.2); White Blood Count 2.5 th/mm3 (4.0-11.0)
[2018-01-04] MEDS: Sod Chloride 0.9% Inj 1,000 ML IV.SIG SCH (12:46)
[2018-01-04 13:25] LABS: Platelet Morphology Normal (Normal); Tear Drop Cells 1+
--- NOTE | 2018-01-04 13:58 | CT ---
EXAM DATE: 01/04/2018 11:40 AM EDT AGE/SEX: 72 years / Male INDICATIONS: 72-year-old male with history of metastatic colorectal CA to liver. Patient has stable limited residual hepatic disease and therefore presents for locoregional treatment. CLINICAL DATA: This is the patient's initial encounter. Patient reports that signs and symptoms have been present for 1 day and indicates a pain score of 0/10. MEDICAL/SURGICAL HISTORY: Carcinoma, colon. liver mets Appendectomy. Colon resection. hernia repair COMPARISON: TLI, MR ABDOMEN W/ AND W/O CONTRAST, 12/28/2017. . SEDATION TIME (min): 90 Anesthesia and pain control was provided by the Anesthesia department. DEVICE(S): 15 cm Emprint ablation probe . . PROCEDURE: CT guided microwave ablation The risks, benefits and alternatives to the procedure were explained and verbal and written consent w as obtained. Using automated exposure control and adjustment of the mA and/or kV according to patient size, radiation dose was kept as low as reasonably achievable to obtain optimal diagnostic quality i mages. The site was prepped in sterile fashion. Full sterile technique was used, including cap, mask, sterile gloves and gown and a large sterile sheet. Hand hygiene and 2% chlorhexidine and/or betadine /alcohol prep was utilized per protocol for cutaneous antisepsis. The skin and subcutaneous tissues w ere infiltrated with local anesthetic solution. DICOM format image data is available electronically f or review and comparison. MRI examination of 12/28/2017 was reviewed. There are 3 hepatic masses that were targeted based on the MRI exam. This includes a mass crossing the falciform ligament in segment 4 of the liver. A new subc entimeter segment 3 mass and a 2.3 cm segment 6 mass. A [employer] Emprint Microwave ablation probe was inserted into the segment 4 mass crossing to the left lobe and this was ablated for 7 minutes at 100 W. Needle was then repositioned to the segment 3 mass. Although this could not be definitively verif ied on CT. A quick 1 minute ablation at 100 W was then performed. It was then repositioned into the s egment 4 mass to the right of the falciform ligament. This mass was ablated for 10 minutes at 100 W. Inflow was then withdrawn and repositioned into the segment 6 mass. This mass was ablated for 10 faby miguel at [address] exam demonstrated no evidence for significant hemorrhage. Patient tolerated the procedure well and was transferred to PACU in stable condition. CONCLUSION: 1. Uncomplicated CT guided microwave ablation of 4 separate hepatic masses, as above. Plan: Patient will require follow-up MRI exam in approximately 8 weeks. Electronically signed by: Homer Gil MD 01/04/2018 1:57 PM EDT
[2018-01-04] MEDS ORDERED: HYDROmorphone PF Inj 2 MG/ML Vial IV.PUSH ONE (14:15)
[2018-01-04] MEDS ORDERED: HYDROmorphone PF Inj 2 MG/ML Vial IV.PUSH PRN ×4 (14:30→20:00)
[2018-01-04] MEDS: Heparin Central Flush 100 UNIT/ML 5 ML Vial IV.FLUSH PRN (16:38)
[2018-01-04 17:23] LABS: Baso % (Auto) 0.1 % (0.0-2.0); Eos % (Auto) 0.1 % (0.0-4.0); Hematocrit 28.2 % (39.0-51.0); Hemoglobin 9.3 gm/dL (13.0-17.0); Lymph # (Auto) 0.1 th/mm3 (1.0-4.8); Lymph % (Auto) 1.4 % (9.0-44.0); Mean Corpuscular HGB Conc 32.8 % (32.0-36.0); Mean Corpuscular Hemoglobin 34.9 pg (27.0-34.0); Mean Corpuscular Volume 106.4 fL (80.0-100.0); Mean Platelet Volume 8.5 fL (7.0-11.0); Mono % (Auto) 0.7 % (0.0-8.0); Neut # (Auto) 4.9 th/mm3 (1.8-7.7); Neut % (Auto) 97.7 % (16.0-70.0); Platelet Count 88 th/mm3 (150-450); Red Blood Count 2.65 mil/mm3 (4.50-5.90); Red Cell Distribution Width 17.7 % (11.6-17.2)
[2018-01-04] MEDS ORDERED: Morphine Inj 4 MG/ML Vial IV.PUSH PRN ×2 (17:55)
--- NOTE | 2018-01-04 17:57 | P.CONIM ---
History of Present Illness Primary Care Provider: ADRIEN SESAY Family Provider: ADRIEN SESAY History of Present Illness: Mr. Jo is a 72-year-old male. He is admitted secondary to chest pain. Chest pain started after patient had an ablation procedure of liver masses. Ablation was a microwave ablation and was performed with needles. Patient's needle entry sites are at his right flank and just right of the epigastrium. He says that the pain from his chest was at the epigastrium just left of the area where the needle had entered. He has colon cancer with metastasis to liver and four masses are present there. Chest pain has resolved by the time I am seeing him. He has no known pre-existing coronary artery disease. EKG has minor abnormalities including ST depressions with these are seen prior to the procedure which is prior to chest pain and no changes have occurred in the postprocedure EKG compared to the prior. No other complaints tonight. No nausea. No active chest pain when seen. Review of Systems Constitutional: No fevers, no chills no night sweats, no fatigue, no weakness Eyes: No eye pain, no blurry vision, no loss of vision ENT: No sore throat, no ear pain, no rhinorrhea Cardiovascular: chest pain, no tachycardia, no palpitations, no shortness of breath, no syncope Respiratory: No wheezing, no cough, no shortness of breath Gastrointestinal: abdominal pain, no black tarry stools, no bright red blood per rectum, no vomiting, no diarrhea Musculoskeletal: No joint pain, no muscle cramps, no stiffness Integumentary: No rash, no ulcers, no drainage Neurologic: No sensory loss, no loss of motor function, no dizziness Psychiatric: No behavioral changes, no hallucinations, no suicidal ideations PMFSH - History History Provided By: Patient - Medical History Medical History: Medical History (Last Updated 01/04/18 @ 08:33 by Nimisha Moore RN) Arthritis Hemorrhoids Hernia of abdominal wall History of chemotherapy History of colorectal cancer History of kidney stones History of known metastasis to liver History of radiation therapy Osteoarthritis - Surgical History Surgical History: Surgical History (Last Updated 01/04/18 @ 08:29 by Nimisha Moore RN) H/O right knee surgery History of appendectomy History of colon resection History of colonoscopy History of hernia repair History of reversal of ileostomy - Family History Family History: Family History (Last Updated 01/04/18 @ 08:31 by Nimisha Moore RN) Sister Liver cancer Mother Family history of breast cancer - Tobacco History Second Hand Smoke Exposure: No Tobacco Use In Past 30 Days: No Smoking Status: Former smoker Tobacco Type: Cigarettes - Alcohol History How Often Do You Have a Drink Containing Alcohol: Monthly or less - Substance Use History Substance History: No History of Abuse - Travel History Recent Travel in the [place] Within the Last 8 Weeks: No Recent Travel Out of the Country Within the Last 8 Weeks: No Medications and Allergies Active Medications: Active Medications Al Hydroxide/Mg Hydroxide (Milk Of Dannielle Lieliseo) 30 ml PO Q12H PRN PRN Reason: Mild Constipation Heparin Sodium (Porcine) (Heparin Central Flush) 250 unit IV.FLUSH UNSCH PRN PRN Reason: Flush Infusapot Last Admin: 01/04/18 16:38 Dose: 250 unit Heparin Sodium (Porcine) (Heparin Central Flush) 500 unit IV.FLUSH UNSCH PRN PRN Reason: Flush infusaport Hydromorphone HCl (Dilaudid Pf Inj) 1 mg IV.PUSH Q2H PRN PRN Reason: PAIN SCALE 1 TO 10 Lactated Ringer's (Lr 1000 Ml Inj) 1,000 mls @ 30 mls/hr IV.SIG .Q24H [facility] Stop: 01/05/18 07:29 Last Infusion: 01/04/18 12:49 Dose: Infused Sodium Chloride (Ns Inj) 500 mls @ 30 mls/hr IV.SIG .Q10H [facility] Last Admin: 01/04/18 12:46 Dose: Not Given Sodium Chloride (Ns Inj) 1,000 mls @ 30 mls/hr IV.SIG .Q24H [facility] Last Admin: 01/04/18 12:46 Dose: Not Given Cefazolin Sodium 2,000 mg/ (Sodium Chloride) 100 mls @ 200 mls/hr IV.SIG [employer] [facility] Stop: 01/07/18 07:59 Miscellaneous Information ([facility] Nursing Information) 1 each OTHER UNSCH PRN PRN Reason: SEE LABEL COMMENTS Stop: 01/05/18 11:44 Sodium Chloride (Ns Flush) 5 ml IV.FLUSH UNSCH PRN PRN Reason: Flush Infusaport Allergies Allergy/AdvReac Type Severity Reaction Status Date / Time 5FU Allergy Severe Rash Uncoded 01/04/18 08:03 Home Medications Medication Instructions Recorded Confirmed Type acetaminophen 500 mg PO Q6H PRN 01/04/18 01/04/18 History ascorbic acid (vitamin C) [Vitamin 500 mg PO DAILY 01/04/18 01/04/18 History C] calcium carbonate [Calcium 500] 500 mg PO DAILY 01/04/18 01/04/18 History cholecalciferol (vitamin D3) 5,000 unit PO DAILY 01/04/18 01/04/18 History [Vitamin D3] ferrous sulfate [Iron (ferrous 325 mg PO DAILY 01/04/18 01/04/18 History sulfate)] lisinopril 20 mg PO DAILY 01/04/18 01/04/18 History dvarwjqz-juf-QH-lycopen-lutein 1 tab PO DAILY 01/04/18 01/04/18 History [Centrum Silver] vitamin S43-pmcwq acid 1 tab PO DAILY 01/04/18 01/04/18 History Exam Vital signs: Vital Signs 01/04/18 07:25 01/04/18 11:38 01/04/18 11:45 Temperature 97.8 F 98.1 F Pulse Rate 76 60 54 L Respiratory Rate 18 12 12 Blood Pressure 114/65 140/64 146/65 H Pulse Oximetry 99 98 97 01/04/18 12:00 01/04/18 12:15 01/04/18 12:30 Temperature 98.2 F Pulse Rate 51 L 58 L 59 L Respiratory Rate 12 12 12 Blood Pressure 150/73 H 154/77 H 149/75 H Pulse Oximetry 99 100 100 01/04/18 12:35 01/04/18 13:05 01/04/18 13:35 Temperature Pulse Rate 53 L 49 L 54 L Respiratory Rate 20 20 20 Blood Pressure 184/87 H 179/89 H 160/79 H Pulse Oximetry 100 96 01/04/18 14:35 01/04/18 15:33 01/04/18 15:37 Temperature Pulse Rate 66 98 H Respiratory Rate 18 18 18 Blood Pressure 135/74 158/85 H Pulse Oximetry 100 01/04/18 16:38 Temperature Pulse Rate 61 Respiratory Rate 18 Blood Pressure 120/80 Pulse Oximetry 100 Intake & Output 01/03/18 01/04/18 01/04/18 18:59 06:59 18:59 Intake Total 1300 / 1300 Balance 1300 / 1300 Weight 75.75 kg Intake: IV 1300 / 1300 LR 1000 mL Inj 1,000 ML @ 30 1000 / 1000 mls/hr IV.SIG .Q24H [facility] Rx#: [id number] Vancomycin Inj 1,000 MG In NS 250 / 250 Inj 250 ML @ 250 mls/hr IV.SIG [employer] [facility] Rx#:[id number] Ancef 2 GM Premix Inj 2 gm In 50 / 50 50 ml @ 0 mls/hr IV.SIG .STK- [facility] Rx#:[id number] Other: Weight On Admission 75.75 kg Narrative: GENERAL: NAD, A&Ox3 HEAD: Normocephalic. NECK: Supple, trachea midline. No lymphadenopathy. EYES: No scleral icterus. No injection or drainage. CARDIOVASCULAR: Regular rate and rhythm without murmurs, gallops, or rubs. RESPIRATORY: Breath sounds equal bilaterally. No accessory muscle use. GASTROINTESTINAL: Abdomen soft, non-tender, nondistended. MUSCULOSKELETAL: No cyanosis, or edema. SKIN: Warm and dry. Dressings are present over the needle entry sites at the right flank and at the epigastrium. NEURO: No focal neurological deficits. Results - Labs CBC & Chem 7: 01/04/18 16:30 01/04/18 08:08 Labs: Laboratory Results - last 24 hr 01/04/18 01/04/18 01/04/18 08:08 08:08 08:08 WBC 2.3 L RBC 2.44 L Hgb 8.3 L Hct 25.7 L MCV 105.3 H MCH 34.1 H MCHC 32.4 RDW 17.5 H Plt Count 98 L MPV 10.2 Prelim Diff (Auto) Slide review pending Neut % (Auto) 81.8 H Lymph % (Auto) 8.1 L [place] % (Auto) 7.2 Eos % (Auto) 2.6 Baso % (Auto) 0.3 Neut # (Auto) 1.9 Lymph # (Auto) 0.2 L [place] # (Auto) 0.2 Eos # (Auto) 0.1 Baso # (Auto) 0.0 WBC Differential . Diff Scan Auto diff confirmed Differential Comment . Platelet Estimate Low L Platelet Morphology Normal Tear Drop Cells PT 11.1 INR 1.1 APTT 24.6 Sodium 146 H Potassium 3.9 Chloride 111 H Carbon Dioxide 28.0 Anion Gap 7 BUN 7 Creatinine 0.73 Estimated GFR Greater than 89 Random Glucose 90 Calcium 7.8 L 01/04/18 01/04/18 11:45 16:30 WBC 2.5 L 5.0 D RBC 2.40 L 2.65 L Hgb 8.4 L 9.3 L Hct 25.5 L 28.2 L MCV 106.4 H 106.4 H MCH 35.2 H 34.9 H MCHC 33.1 32.8 RDW 17.7 H 17.7 H Plt Count 95 L 88 L MPV 9.7 8.5 Prelim Diff (Auto) Slide review pending Slide review pending Neut % (Auto) 82.1 H 97.7 H Lymph % (Auto) 10.4 1.4 L [place] % (Auto) 5.0 0.7 Eos % (Auto) 1.9 0.1 Baso % (Auto) 0.6 0.1 Neut # (Auto) 2.0 4.9 Lymph # (Auto) 0.3 L 0.1 L Glenn # (Auto) 0.1 0.0 Eos # (Auto) 0.0 0.0 Baso # (Auto) 0.0 0.0 WBC Differential . Diff Scan Auto diff confirmed Differential Comment . . Platelet Estimate Low L Platelet Morphology Normal Tear Drop Cells 1+ H PT INR APTT Sodium Potassium Chloride Carbon Dioxide Anion Gap BUN Creatinine Estimated GFR Random Glucose Calcium - Imaging Impressions CT Guided Tissue Ablation 01/04/18 09:02 CONCLUSION: 1. Uncomplicated CT guided microwave ablation of 4 separate hepatic masses, as above. Plan: Patient will require follow-up MRI exam in approximately 8 weeks. Assessment and Plan - Plan 72-year-old male admitted secondary to chest pain status post liver mass ablation Chest pain Evaluate for ACS Follow cardiac enzymes When necessary oxygen When necessary morphine for pain. When necessary nitroglycerin Follow on telemetry Etiology may be related to liver ablation, if no positive findings patient can be medically cleared by the morning Colon cancer Liver metastasis Status post ablation of liver masses Etiology for chest pain may be related procedure Monitor overnight Arthritis Hemorrhoids Hernia of abdominal wall History of chemotherapy History of colorectal cancer History of kidney stones History of known metastasis to liver History of radiation therapy Osteoarthritis Continue to follow as an outpatient DVT prophylaxis SCDs No anticoagulation right now due to risk of bleeding
[2018-01-04] MEDS ORDERED: Zolpidem Tartrate 5 MG Tablet PO PRN (18:35)
[2018-01-04 19:06] LABS: Lymphocytes 1 % (9-44)
[2018-01-04 19:07] LABS: Ovalocytes 1+; Tear Drop Cells 1+
[2018-01-04 20:21] LABS: Lipase 95 U/L (73-393)
[2018-01-05 07:26] LABS: Baso % (Auto) 0.1 % (0.0-2.0); Eos % (Auto) 0.1 % (0.0-4.0); Lymph # (Auto) 0.2 th/mm3 (1.0-4.8); Lymph % (Auto) 5.1 % (9.0-44.0); Mean Corpuscular HGB Conc 33.3 % (32.0-36.0); Mean Corpuscular Volume 105.2 fL (80.0-100.0); Mean Platelet Volume 8.5 fL (7.0-11.0); Mono # (Auto) 0.2 th/mm3 (0.0-0.9); Neut # (Auto) 3.2 th/mm3 (1.8-7.7); Neut % (Auto) 89.7 % (16.0-70.0); Platelet Count 80 th/mm3 (150-450); Red Blood Count 2.56 mil/mm3 (4.50-5.90); Red Cell Distribution Width 17.6 % (11.6-17.2); White Blood Count 3.6 th/mm3 (4.0-11.0)
[2018-01-05 08:08] LABS: Albumin 2.9 g/dL (3.4-5.0); Anion Gap 6 meq/L (5-15); Aspartate Aminotransferase 220 U/L (15-37); Blood Urea Nitrogen 8 mg/dL (7-18); Calcium 8.6 mg/dL (8.5-10.1); Carbon Dioxide 28.1 meq/L (21.0-32.0); Chloride 108 meq/L (98-107); Glomerular Filtration Rate Greater Than 89 mL/min (>89); Glucose,Random 98 mg/dL (74-106); Lipase 61 U/L (73-393); Sodium 142 meq/L (136-145)
[2018-01-05 08:09] LABS: Potassium 4.8 meq/L (3.5-5.1)
[2018-01-05 08:13] LABS: Alanine Aminotransferase 138 U/L (12-78); Alkaline Phosphatase 87 U/L (45-117); Total Protein 5.8 g/dL (6.4-8.2)
[2018-01-05 09:00] LABS: Tear Drop Cells 1+
[2018-01-05] MEDS ORDERED: Ferrous Sulfate 325 MG Tablet PO SCH (09:00)
[2018-01-05] MEDS ORDERED: Lisinopril 20 MG Tablet PO SCH (09:00)
[2018-01-05] MEDS ORDERED: Calcium Carbonate 500 MG Tablet PO SCH (09:00)
[2018-01-05] MEDS ORDERED: VITAMIN B12 FOLIC ACID PO SCH (09:00)
[2018-01-05] MEDS: Sod Chloride 0.9% Inj 1,000 ML IV.SIG SCH (09:43)
--- NOTE | 2018-01-05 12:44 | P.PNIM ---
Subjective Interval history: Mr. Jo is a 72-year-old male. He is admitted secondary to chest pain. Chest pain started after patient had an ablation procedure of liver masses. Ablation was a microwave ablation and was performed with needles. Patient's needle entry sites are at his right flank and just right of the epigastrium. He says that the pain from his chest was at the epigastrium just left of the area where the needle had entered. He has colon cancer with metastasis to liver and four masses are present there. Chest pain has resolved by the time I am seeing him. He has no known pre-existing coronary artery disease. EKG has minor abnormalities including ST depressions with these are seen prior to the procedure which is prior to chest pain and no changes have occurred in the postprocedure EKG compared to the prior. No other complaints tonight. No nausea. No active chest pain when seen. 9-6 DENIES ANY CHEST PAIN TOOK DILAUDID LAST NIGHT WANTS TO GO HOME DW RN AND PT AND CM WILL GIVE PAIN MEDS FOR ACUTE PAIN DC TO HOME TODAY E-FORCE HAS BEEN VIEWED will give oxycodone at dc 5mg 1 po q6h #12 Physical Exam Vital signs: Vital Signs 01/04/18 13:05 01/04/18 13:35 01/04/18 14:35 Temperature Pulse Rate 49 L 54 L 66 Respiratory Rate 20 20 18 Blood Pressure 179/89 H 160/79 H 135/74 Pulse Oximetry 96 01/04/18 15:33 01/04/18 15:37 01/04/18 16:38 Temperature Pulse Rate 98 H 61 Respiratory Rate 18 18 18 Blood Pressure 158/85 H 120/80 Pulse Oximetry 100 100 01/04/18 20:00 01/05/18 00:00 01/05/18 04:00 Temperature 98.0 F 98.2 F 97.7 F Pulse Rate 82 109 H 95 H Respiratory Rate 18 18 18 Blood Pressure 108/63 112/54 L 130/67 Pulse Oximetry 97 99 98 01/05/18 08:00 Temperature 97.8 F Pulse Rate 69 Respiratory Rate 17 Blood Pressure 151/66 H Pulse Oximetry 100 Intake & Output 01/04/18 01/05/18 01/05/18 18:59 06:59 18:59 Intake Total 1300 / 1300 480 / 480 Output Total 900 / 900 Balance 1300 / 1300 -420 / -420 Weight 75.75 kg Intake: IV 1300 / 1300 LR 1000 mL Inj 1,000 ML @ 30 1000 / 1000 mls/hr IV.SIG .Q24H [facility] Rx#: [id number] Vancomycin Inj 1,000 MG In NS 250 / 250 Inj 250 ML @ 250 mls/hr IV.SIG [employer] [facility] Rx#:[id number] Ancef 2 GM Premix Inj 2 gm In 50 / 50 50 ml @ 0 mls/hr IV.SIG .STK[facility] Rx#:[id number] Oral 480 / 480 Output: Urine 900 / 900 Other: # Voids 2 Weight On Admission 75.75 kg Narrative: GENERAL: NAD, A&Ox3 HEAD: Normocephalic. NECK: Supple, trachea midline. No lymphadenopathy. EYES: No scleral icterus. No injection or drainage. CARDIOVASCULAR: Regular rate and rhythm without murmurs, gallops, or rubs. RESPIRATORY: Breath sounds equal bilaterally. No accessory muscle use. GASTROINTESTINAL: Abdomen soft, non-tender, nondistended. MUSCULOSKELETAL: No cyanosis, or edema. SKIN: Warm and dry. Dressings are present over the needle entry sites at the right flank and at the epigastrium. NEURO: No focal neurological deficits. Results - Labs CBC & Chem 7: 01/05/18 05:43 01/05/18 05:43 Laboratory Results - last 24 hr 01/04/18 01/04/18 01/04/18 08:08 11:45 16:30 WBC 5.0 D RBC 2.65 L Hgb 9.3 L Hct 28.2 L MCV 106.4 H MCH 34.9 H MCHC 32.8 RDW 17.7 H Plt Count 88 L MPV 8.5 Prelim Diff (Auto) Slide review pending Neut % (Auto) 97.7 H Lymph % (Auto) 1.4 L [place] % (Auto) 0.7 Eos % (Auto) 0.1 Baso % (Auto) 0.1 Neut # (Auto) 4.9 Lymph # (Auto) 0.1 L [place] # (Auto) 0.0 Eos # (Auto) 0.0 Baso # (Auto) 0.0 WBC Differential . Manual diff final Diff Scan Auto diff confirmed Seg Neuts % (Manual) 85 H Band Neuts % (Manual) 14 H Lymphocytes % (Manual) 1 L Abs Neuts (Manual) 5.0 Differential Comment . Platelet Estimate Low L Low L Platelet Morphology Normal Enlarged H Tear Drop Cells 1+ H 1+ H Ovalocytes 1+ H Sodium Potassium Chloride Carbon Dioxide Anion Gap BUN Creatinine Estimated GFR Random Glucose Calcium Total Bilirubin AST ALT Alkaline Phosphatase Troponin I Less than 0.02 L Total Protein Albumin Lipase 95 01/05/18 01/05/18 05:43 05:43 WBC 3.6 L RBC 2.56 L Hgb 9.0 L Hct 27.0 L MCV 105.2 H MCH 35.0 H MCHC 33.3 RDW 17.6 H Plt Count 80 L MPV 8.5 Prelim Diff (Auto) Slide review pending Neut % (Auto) 89.7 H Lymph % (Auto) 5.1 L [place] % (Auto) 5.0 Eos % (Auto) 0.1 Baso % (Auto) 0.1 Neut # (Auto) 3.2 Lymph # (Auto) 0.2 L [place] # (Auto) 0.2 Eos # (Auto) 0.0 Baso # (Auto) 0.0 WBC Differential . Diff Scan Auto diff confirmed Seg Neuts % (Manual) Band Neuts % (Manual) Lymphocytes % (Manual) Abs Neuts (Manual) Differential Comment . Platelet Estimate Platelet Morphology Tear Drop Cells 1+ H Ovalocytes Sodium 142 Potassium 4.8 D Chloride 108 H Carbon Dioxide 28.1 Anion Gap 6 BUN 8 Creatinine 0.64 Estimated GFR Greater than 89 Random Glucose 98 Calcium 8.6 D Total Bilirubin 0.7 AST 220 H ALT 138 H Alkaline Phosphatase 87 Troponin I Less than 0.02 L Total Protein 5.8 L Albumin 2.9 L Lipase 61 L - Imaging Impressions CT Guided Tissue Ablation 01/04/18 09:02 CONCLUSION: 1. Uncomplicated CT guided microwave ablation of 4 separate hepatic masses, as above. Plan: Patient will require follow-up MRI exam in approximately 8 weeks. - Procedures Devendra Jo CT RF ablation visceral Signed EXAM DATE: 01/04/2018 11:40 AM EDT AGE/SEX: 72 years / Male INDICATIONS: 72-year-old male with history of metastatic colorectal CA to liver. Patient has stable limited residual hepatic disease and therefore presents for locoregional treatment. CLINICAL DATA: This is the patient's initial encounter. Patient reports that signs and symptoms have been present for 1 day and indicates a pain score of 0/ 10. MEDICAL/SURGICAL HISTORY: Carcinoma, colon. liver mets Appendectomy. Colon resection. hernia repair COMPARISON: [facility], MR ABDOMEN W/ AND W/O CONTRAST, 12/28/2017. . SEDATION TIME (min): 90 Anesthesia and pain control was provided by the Anesthesia department. DEVICE(S): 15 cm Emprint ablation probe . . PROCEDURE: CT guided microwave ablation The risks, benefits and alternatives to the procedure were explained and verbal and written consent was obtained. Using automated exposure control and adjustment of the mA and/or kV according to patient size, radiation dose was kept as low as reasonably achievable to obtain optimal diagnostic quality images. The site was prepped in sterile fashion. Full sterile technique was used , including cap, mask, sterile gloves and gown and a large sterile sheet. Hand hygiene and 2% chlorhexidine and/or betadine/alcohol prep was utilized per protocol for cutaneous antisepsis. The skin and subcutaneous tissues were infiltrated with local anesthetic solution. DICOM format image data is available electronically for review and comparison. MRI examination of 12/28/2017 was reviewed. There are 3 hepatic masses that were targeted based on the MRI exam. This includes a mass crossing the falciform ligament in segment 4 of the liver. A new subcentimeter segment 3 mass and a 2.3 cm segment 6 mass. A [facility] Emprint Microwave ablation probe was inserted into the segment 4 mass crossing to the left lobe and this was ablated for 7 minutes at 100 W. Needle was then repositioned to the segment 3 mass. Although this could not be definitively verified on CT. A quick 1 minute ablation at 100 W was then performed. It was then repositioned into the segment 4 mass to the right of the falciform ligament. This mass was ablated for 10 minutes at 100 W. Inflow was then withdrawn and repositioned into the segment 6 mass. This mass was ablated for 10 minutes at [address] exam demonstrated no evidence for significant hemorrhage. Patient tolerated the procedure well and was transferred to PACU in stable condition. CONCLUSION: 1. Uncomplicated CT guided microwave ablation of 4 separate hepatic masses, as above. Plan: Patient will require follow-up MRI exam in approximately 8 weeks. Electronically signed by: Homer Gil MD 01/04/2018 1:57 PM EDT Assessment and Plan - Plan 72-year-old male admitted secondary to chest pain status post liver mass ablation Chest pain Evaluate for ACS Follow cardiac enzymes When necessary oxygen When necessary morphine for pain. When necessary nitroglycerin Follow on telemetry Etiology may be related to liver ablation, if no positive findings patient can be medically cleared by the morning dc to home troponins all negative Colon cancer Liver metastasis Status post ablation of liver masses Etiology for chest pain may be related procedure Monitor overnight Arthritis Hemorrhoids Hernia of abdominal wall History of chemotherapy History of colorectal cancer History of kidney stones History of known metastasis to liver History of radiation therapy Osteoarthritis Continue to follow as an outpatient DVT prophylaxis SCDs No anticoagulation right now due to risk of bleeding TV [employer] Prescription Drug Monitoring Database has been queried and verified prior to prescribing the controlled substance. Acute pain exception. This patient has normal, predicted, physiological, and time limited response to an adverse mechanical stimulus associated with surgery, trauma, or acute illness as described in my notes. There is a lack of alternative treatment options other than to include the prescribed narcotic treatment for this condition. Code Status: full code Discussed Condition With: RN AND PT AND CM AND FAMILY Discharge Planning: DC TO HOME TODAY
--- NOTE | 2018-01-05 12:53 | P.DS ---
Date of admission: 01/04/18 Primary care physician: ADRIEN SESAY Attending physician on discharge: Oscar Ibarra Anticipated date of discharge: 01/05/18 Brief History from admission: Mr. Jo is a 72-year-old male. He is admitted secondary to chest pain. Chest pain started after patient had an ablation procedure of liver masses. Ablation was a microwave ablation and was performed with needles. Patient's needle entry sites are at his right flank and just right of the epigastrium. He says that the pain from his chest was at the epigastrium just left of the area where the needle had entered. He has colon cancer with metastasis to liver and four masses are present there. Chest pain has resolved by the time I am seeing him. He has no known pre-existing coronary artery disease. EKG has minor abnormalities including ST depressions with these are seen prior to the procedure which is prior to chest pain and no changes have occurred in the postprocedure EKG compared to the prior. No other complaints tonight. No nausea. No active chest pain when seen. 96 DENIES ANY CHEST PAIN TOOK DILAUDID LAST NIGHT WANTS TO GO HOME [facility] RN AND PT AND CM WILL GIVE PAIN MEDS FOR ACUTE PAIN DC TO HOME TODAY E-FORCE HAS BEEN VIEWED will give oxycodone at dc 5mg 1 po q6h #12 Patient update on day of discharge: Mr. Jo is a 72-year-old male. He is admitted secondary to chest pain. Chest pain started after patient had an ablation procedure of liver masses. Ablation was a microwave ablation and was performed with needles. Patient's needle entry sites are at his right flank and just right of the epigastrium. He says that the pain from his chest was at the epigastrium just left of the area where the needle had entered. He has colon cancer with metastasis to liver and four masses are present there. Chest pain has resolved by the time I am seeing him. He has no known pre-existing coronary artery disease. EKG has minor abnormalities including ST depressions with these are seen prior to the procedure which is prior to chest pain and no changes have occurred in the postprocedure EKG compared to the prior. No other complaints tonight. No nausea. No active chest pain when seen. 9-6 DENIES ANY CHEST PAIN TOOK DILAUDID LAST NIGHT WANTS TO GO HOME [facility] RN AND PT AND CM WILL GIVE PAIN MEDS FOR ACUTE PAIN DC TO HOME TODAY E-FORCE HAS BEEN VIEWED will give oxycodone at dc 5mg 1 po q6h #12 DS: Diagnosis - Discharge Diagnosis (1) Liver metastases Status: Chronic (2) Colon cancer metastasized to liver Status: Chronic (3) Osteoarthritis Status: Chronic (4) Atypical chest pain Status: Acute DS: Medications - Discharge Medications Prescriptions: oxycodone 5 mg PO Q4-6H PRN #12 tab PRN Reason: Acute Pain DS: Summary Hospital Course: Mr. Jo is a 72-year-old male. He is admitted secondary to chest pain. Chest pain started after patient had an ablation procedure of liver masses. Ablation was a microwave ablation and was performed with needles. Patient's needle entry sites are at his right flank and just right of the epigastrium. He says that the pain from his chest was at the epigastrium just left of the area where the needle had entered. He has colon cancer with metastasis to liver and four masses are present there. Chest pain has resolved by the time I am seeing him. He has no known pre-existing coronary artery disease. EKG has minor abnormalities including ST depressions with these are seen prior to the procedure which is prior to chest pain and no changes have occurred in the postprocedure EKG compared to the prior. No other complaints tonight. No nausea. No active chest pain when seen. 9-6 DENIES ANY CHEST PAIN TOOK DILAUDID LAST NIGHT WANTS TO GO HOME [facility] RN AND PT AND CM WILL GIVE PAIN MEDS FOR ACUTE PAIN DC TO HOME TODAY E-FORCE HAS BEEN VIEWED will give oxycodone at dc 5mg 1 po q6h #12 - Time Spent with Patient Total time spent providing and/or coordinating discharge services: Greater than 30 minutes - Quality: VTE Deep Vein Thrombosis/Pulmonary Embolism Present on Admission: No Exam Vital signs: Vital Signs 01/04/18 13:05 01/04/18 13:35 01/04/18 14:35 Temperature Pulse Rate 49 L 54 L 66 Respiratory Rate 20 20 18 Blood Pressure 179/89 H 160/79 H 135/74 Pulse Oximetry 96 01/04/18 15:33 01/04/18 15:37 01/04/18 16:38 Temperature Pulse Rate 98 H 61 Respiratory Rate 18 18 18 Blood Pressure 158/85 H 120/80 Pulse Oximetry 100 100 01/04/18 20:00 01/05/18 00:00 01/05/18 04:00 Temperature 98.0 F 98.2 F 97.7 F Pulse Rate 82 109 H 95 H Respiratory Rate 18 18 18 Blood Pressure 108/63 112/54 L 130/67 Pulse Oximetry 97 99 98 01/05/18 08:00 01/05/18 12:00 Temperature 97.8 F 98.0 F Pulse Rate 69 78 Respiratory Rate 17 17 Blood Pressure 151/66 H 131/62 Pulse Oximetry 100 98 Intake & Output 01/04/18 01/05/18 01/05/18 18:59 06:59 18:59 Intake Total 1300 / 1300 480 / 480 Output Total 900 / 900 Balance 1300 / 1300 -420 / -420 Weight 75.75 kg Intake: IV 1300 / 1300 LR 1000 mL Inj 1,000 ML @ 30 1000 / 1000 mls/hr IV.SIG .Q24H [facility] Rx#: [id number] Vancomycin Inj 1,000 MG In NS 250 / 250 Inj 250 ML @ 250 mls/hr IV.SIG MACHINE TRACER [facility] Rx#:[id number] Ancef 2 GM Premix Inj 2 gm In 50 / 50 50 ml @ 0 mls/hr IV.SIG .STK- [facility] Rx#:[id number] Oral 480 / 480 Output: Urine 900 / 900 Other: # Voids 2 Weight On Admission 75.75 kg Narrative: GENERAL: NAD, A&Ox3 HEAD: Normocephalic. NECK: Supple, trachea midline. No lymphadenopathy. EYES: No scleral icterus. No injection or drainage. CARDIOVASCULAR: Regular rate and rhythm without murmurs, gallops, or rubs. RESPIRATORY: Breath sounds equal bilaterally. No accessory muscle use. GASTROINTESTINAL: Abdomen soft, non-tender, nondistended. MUSCULOSKELETAL: No cyanosis, or edema. SKIN: Warm and dry. Dressings are present over the needle entry sites at the right flank and at the epigastrium. NEURO: No focal neurological deficits. Results Procedures completed during hospitalization: Devendra Jo CT RF ablation visceral Signed EXAM DATE: 01/04/2018 11:40 AM EDT AGE/SEX: 72 years / Male INDICATIONS: 72-year-old male with history of metastatic colorectal CA to liver. Patient has stable limited residual hepatic disease and therefore presents for locoregional treatment. CLINICAL DATA: This is the patient's initial encounter. Patient reports that signs and symptoms have been present for 1 day and indicates a pain score of 0/ 10. MEDICAL/SURGICAL HISTORY: Carcinoma, colon. liver mets Appendectomy. Colon resection. hernia repair COMPARISON: TLI, MR ABDOMEN W/ AND W/O CONTRAST, 12/28/2017. . SEDATION TIME (min): 90 Anesthesia and pain control was provided by the Anesthesia department. DEVICE(S): 15 cm Emprint ablation probe . . PROCEDURE: CT guided microwave ablation The risks, benefits and alternatives to the procedure were explained and verbal and written consent was obtained. Using automated exposure control and adjustment of the mA and/or kV according to patient size, radiation dose was kept as low as reasonably achievable to obtain optimal diagnostic quality images. The site was prepped in sterile fashion. Full sterile technique was used , including cap, mask, sterile gloves and gown and a large sterile sheet. Hand hygiene and 2% chlorhexidine and/or betadine/alcohol prep was utilized per protocol for cutaneous antisepsis. The skin and subcutaneous tissues were infiltrated with local anesthetic solution. DICOM format image data is available electronically for review and comparison. MRI examination of 12/28/2017 was reviewed. There are 3 hepatic masses that were targeted based on the MRI exam. This includes a mass crossing the falciform ligament in segment 4 of the liver. A new subcentimeter segment 3 mass and a 2.3 cm segment 6 mass. A Hytle Emprint Microwave ablation probe was inserted into the segment 4 mass crossing to the left lobe and this was ablated for 7 minutes at 100 W. Needle was then repositioned to the segment 3 mass. Although this could not be definitively verified on CT. A quick 1 minute ablation at 100 W was then performed. It was then repositioned into the segment 4 mass to the right of the falciform ligament. This mass was ablated for 10 minutes at 100 W. Inflow was then withdrawn and repositioned into the segment 6 mass. This mass was ablated for 10 minutes at [address] exam demonstrated no evidence for significant hemorrhage. Patient tolerated the procedure well and was transferred to PACU in stable condition. CONCLUSION: 1. Uncomplicated CT guided microwave ablation of 4 separate hepatic masses, as above. Plan: Patient will require follow-up MRI exam in approximately 8 weeks. Electronically signed by: Homer Gil MD 01/04/2018 1:57 PM EDT Completed studies during hospitalization: Laboratory Results WBC 3.6 th/mm3 (4.0-11.0) L 01/05/18 05:43 RBC 2.56 mil/mm3 (4.50-5.90) L 01/05/18 05:43 Hgb 9.0 gm/dL (13.0-17.0) L 01/05/18 05:43 Hct 27.0 % (39.0-51.0) L 01/05/18 05:43 MCV 105.2 fL (80.0-100.0) H 01/05/18 05:43 MCH 35.0 pg (27.0-34.0) H 01/05/18 05:43 MCHC 33.3 % (32.0-36.0) 01/05/18 05:43 RDW 17.6 % (11.6-17.2) H 01/05/18 05:43 Plt Count 80 th/mm3 (150-450) L 01/05/18 05:43 MPV 8.5 fL (7.0-11.0) 01/05/18 05:43 Prelim Diff (Auto) Slide review pending 01/05/18 05:43 Neut % (Auto) 89.7 % (16.0-70.0) H 01/05/18 05:43 Lymph % (Auto) 5.1 % (9.0-44.0) L 01/05/18 05:43 Calloway % (Auto) 5.0 % (0.0-8.0) 01/05/18 05:43 Eos % (Auto) 0.1 % (0.0-4.0) 01/05/18 05:43 Baso % (Auto) 0.1 % (0.0-2.0) 01/05/18 05:43 Neut # (Auto) 3.2 th/mm3 (1.8-7.7) 01/05/18 05:43 Lymph # (Auto) 0.2 th/mm3 (1.0-4.8) L 01/05/18 05:43 Calloway # (Auto) 0.2 th/mm3 (0.0-0.9) 01/05/18 05:43 Eos # (Auto) 0.0 th/mm3 (0.0-0.4) 01/05/18 05:43 Baso # (Auto) 0.0 th/mm3 (0.0-0.2) 01/05/18 05:43 WBC Differential . 01/05/18 05:43 Diff Scan Auto diff confirmed 01/05/18 05:43 Seg Neuts % (Manual) 85 % (16-70) H 01/04/18 16:30 Band Neuts % (Manual) 14 % (0-6) H 01/04/18 16:30 Lymphocytes % (Manual) 1 % (9-44) L 01/04/18 16:30 Abs Neuts (Manual) 5.0 th/mm3 (1.8-7.7) 01/04/18 16:30 Differential Comment . 01/05/18 05:43 Platelet Estimate Low (Normal) L 01/04/18 16:30 Platelet Morphology Enlarged (Normal) H 01/04/18 16:30 Tear Drop Cells 1+ (None) H 01/05/18 05:43 Ovalocytes 1+ (None) H 01/04/18 16:30 PT 11.1 sec (9.8-11.6) 01/04/18 08:08 INR 1.1 Ratio 01/04/18 08:08 APTT 24.6 sec (24.3-30.1) 01/04/18 08:08 Sodium 142 meq/L (136-145) 01/05/18 05:43 Potassium 4.8 meq/L (3.5-5.1) D 01/05/18 05:43 Chloride 108 meq/L (98-107) H 01/05/18 05:43 Carbon Dioxide 28.1 meq/L (21.0-32.0) 01/05/18 05:43 Anion Gap 6 meq/L (5-15) 01/05/18 05:43 BUN 8 mg/dL (7-18) 01/05/18 05:43 Creatinine 0.64 mg/dL (0.60-1.30) 01/05/18 05:43 Estimated GFR Greater than 89 mL/min (>89) 01/05/18 05:43 Random Glucose 98 mg/dL (74-106) 01/05/18 05:43 Calcium 8.6 mg/dL (8.5-10.1) D 01/05/18 05:43 Total Bilirubin 0.7 mg/dL (0.2-1.0) 01/05/18 05:43 AST 220 U/L (15-37) H 01/05/18 05:43 ALT 138 U/L (12-78) H 01/05/18 05:43 Alkaline Phosphatase 87 U/L (45-117) 01/05/18 05:43 Troponin I Less than 0.02 ng/mL (0.02-0.05) L 01/05/18 05:43 Total Protein 5.8 g/dL (6.4-8.2) L 01/05/18 05:43 Albumin 2.9 g/dL (3.4-5.0) L 01/05/18 05:43 Lipase 61 U/L (73-393) L 01/05/18 05:[address] Guided Tissue Ablation 01/04/18 09:02 CONCLUSION: 1. Uncomplicated CT guided microwave ablation of 4 separate hepatic masses, as above. Plan: Patient will require follow-up MRI exam in approximately 8 weeks. Labs on day of discharge: Labs from last 24 hours 01/05/18 01/05/18 01/04/18 05:43 05:43 16:30 WBC 3.6 L 5.0 D RBC 2.56 L 2.65 L Hgb 9.0 L 9.3 L Hct 27.0 L 28.2 L MCV 105.2 H 106.4 H MCH 35.0 H 34.9 H MCHC 33.3 32.8 RDW 17.6 H 17.7 H Plt Count 80 L 88 L MPV 8.5 8.5 Prelim Diff (Auto) Slide review pending Slide review pending Neut % (Auto) 89.7 H 97.7 H Lymph % (Auto) 5.1 L 1.4 L Calloway % (Auto) 5.0 0.7 Eos % (Auto) 0.1 0.1 Baso % (Auto) 0.1 0.1 Neut # (Auto) 3.2 4.9 Lymph # (Auto) 0.2 L 0.1 L Calloway # (Auto) 0.2 0.0 Eos # (Auto) 0.0 0.0 Baso # (Auto) 0.0 0.0 WBC Differential . Manual diff final Diff Scan Auto diff confirmed Seg Neuts % (Manual) 85 H Band Neuts % (Manual) 14 H Lymphocytes % (Manual) 1 L Abs Neuts (Manual) 5.0 Differential Comment . . Platelet Estimate Low L Platelet Morphology Enlarged H Tear Drop Cells 1+ H 1+ H Ovalocytes 1+ H Sodium 142 Potassium 4.8 D Chloride 108 H Carbon Dioxide 28.1 Anion Gap 6 BUN 8 Creatinine 0.64 Estimated GFR Greater than 89 Random Glucose 98 Calcium 8.6 D Total Bilirubin 0.7 AST 220 H ALT 138 H Alkaline Phosphatase 87 Troponin I Less than 0.02 L Total Protein 5.8 L Albumin 2.9 L Lipase 61 L 01/04/18 01/04/18 11:45 08:08 WBC RBC Hgb Hct MCV MCH MCHC RDW Plt Count MPV Prelim Diff (Auto) Neut % (Auto) Lymph % (Auto) Calloway % (Auto) Eos % (Auto) Baso % (Auto) Neut # (Auto) Lymph # (Auto) Calloway # (Auto) Eos # (Auto) Baso # (Auto) WBC Differential . Diff Scan Auto diff confirmed Seg Neuts % (Manual) Band Neuts % (Manual) Lymphocytes % (Manual) Abs Neuts (Manual) Differential Comment Platelet Estimate Low L Platelet Morphology Normal Tear Drop Cells 1+ H Ovalocytes Sodium Potassium Chloride Carbon Dioxide Anion Gap BUN Creatinine Estimated GFR Random Glucose Calcium Total Bilirubin AST ALT Alkaline Phosphatase Troponin I Less than 0.02 L Total Protein Albumin Lipase 95 - Impressions ITS Impressions CT Guided Tissue Ablation 01/04/18 09:02 CONCLUSION: 1. Uncomplicated CT guided microwave ablation of 4 separate hepatic masses, as above. Plan: Patient will require follow-up MRI exam in approximately 8 weeks. Discharge Plan - Discharge Disposition Patient Disposition: 01 Discharge Home - Discharge Order Discharge Orders: Discharge Order (Routine); Ordered 01/05/18 Ordered By: Oscar Ibarra - Discharge Details Anticipated Discharge Date: 01/05/18 Discharge Comment: DC TO HOME - Physicians Team Attending Provider: Oscar Ibarra - Rxs /Orders / Referrals /Forms Prescriptions: New oxycodone 5 mg Tablet 5 mg PO Q4-6H PRN (Reason: Acute Pain) Qty: 12 RF: 0 Continue acetaminophen 500 mg Capsule 500 mg PO Q6H PRN (Reason: sleep aid) ascorbic acid (vitamin C) [Vitamin C] 1,000 mg Tablet 500 mg PO DAILY calcium carbonate [Calcium 500] 500 mg calcium (1,250 mg) Tablet 500 mg PO DAILY cholecalciferol (vitamin D3) [Vitamin D3] 5,000 unit Tablet 5,000 unit PO DAILY ferrous sulfate [Iron (ferrous sulfate)] 325 mg (65 mg iron) Tablet 325 mg PO DAILY lisinopril 20 mg Tablet 20 mg PO DAILY [id number]-HH-lycopen-lutein [Centrum Silver] 0.4-300-250 mg-mcg-mcg Tablet 1 tab PO DAILY vitamin [id number] acid 500-400 mcg Tablet 1 tab PO DAILY Referrals: ADRIEN SESAY [Other] - See Instructions Adrien Sesay MD [Physician] - See Instructions (3 TO 5 DAYS)
[2018-01-05] MEDS: Heparin Central Flush 100 UNIT/ML 5 ML Vial IV.FLUSH PRN (13:48)
--- NOTE | 2018-01-06 00:49 | ECG ---
Date Performed: 01/04/2018 Time Performed: 13:00:05 PTAGE: 72 years EKG: SINUS BRADYCARDIA MINIMAL ST DEPRESSION BORDERLINE ECG PREVIOUS TRACING : 01/04/2018 07.40 Since the previous tracing, no significant change noted DOCTOR: Noah Knight Interpretating Date/Time 01/06/2018 00:48:16
== END 2018-01-05 14:14 | disposition home or self-care (01) ==
LOC: HRAD 06:57 → N04 06:57 → HRIP 07:00 → N04 17:45
PROVIDERS: ADMIT Hospitalist; ATTEND Hospitalist